=== PATIENT | female | born 1965 | race Caucasian/White ===

== ENCOUNTER 2023-12-27 08:29 | Inpatient (IN) | payer OTHER, SELFPAY ==
[2023-12-27] VITALS (10 sets, daily range): BP systolic 90–150; BP diastolic 57–93; PULSE 60–83; RESP 14–18; TEMP 36.3–36.6; O2SAT 92–100; BMI 28.1
--- NOTE | ~2023-12-27 | CT_ITS ---
EXAMINATION: CT HEAD WITHOUT CONTRAST CLINICAL INFORMATION: Hypernatremia COMPARISON: None available. TECHNIQUE: Contiguous axial imaging was performed from the skull base to vertex without intravenous administration of contrast. This CT examination was performed using dose optimization techniques as appropriate, variously including the following: *Automated exposure control *Adjustment of mA and/or kV according to patient size (this includes techniques or standardized protocols for targeted exams where dose is matched to indication/reason for exam; i.e. extremities or head) *Use of iterative reconstruction technique DLP: 851.4 mGy-cm FINDINGS: There is no evidence of acute intracranial hemorrhage or edematous territorial infarction. Monroy-white matter differentiation is preserved. There is no abnormal attenuation within the brain parenchyma. The ventricles are normal in morphology and size. No evidence for obstructive hydrocephalus. No abnormal mass effect or midline shift. No extra-axial fluid collections. No acute soft tissue or osseous abnormalities. The mastoid air cells and visualized paranasal sinuses are clear. CT/CT head/brain wo IV con IMPRESSION: 1. No abnormal findings
--- NOTE | ~2023-12-27 | CT_ITS ---
EXAMINATION: CT CHEST WITHOUT CONTRAST CLINICAL INFORMATION: 58-year-old female with hyponatremia, rule out mass COMPARISON: None available. TECHNIQUE: Multidetector volumetric CT imaging of the chest was done. Axial MIP volume rendering provided. Sagittal and coronal reformatted images were obtained. This CT examination was performed using dose optimization techniques as appropriate, variously including the following: *Automated exposure control *Adjustment of mA and/or kV according to patient size (this includes techniques or standardized protocols for targeted exams where dose is matched to indication/reason for exam; i.e. extremities or head) *Use of iterative reconstruction technique DLP: 144.9 mGy-cm FINDINGS: CASHIER CREDIT: Unremarkable LUNGS: The lungs are clear with no evidence of inflammation or nodules. MEDIASTINUM: The mediastinum is normal. CORONARY ARTERY CALCIFICATION: Mild PLEURA: There is no pleural effusion. No pleural mass or thickening. AXILLA: No lymphadenopathy. UPPER ABDOMEN: Unremarkable. OSSEOUS STRUCTURES: There are degenerative changes with extensive subchondral sclerosis T6-T7, T7-T8 and C7-T1. There is mild dextroscoliosis of thoracic spine CT/CT chest wo IV con IMPRESSION: 1. No lung nodules or masses. 2. Mild coronary artery calcification. 3. Degenerative changes in the thoracic spine. Fleischner guidelines were followed.
--- NOTE | 2023-12-27 08:30 | ECG_ITS ---
Test Reason : near syncope Blood Pressure : / mmHG Vent. Rate : 060 BPM Atrial Rate : 060 BPM P-R Int : 244 ms QRS Dur : 106 ms QT Int : 466 ms P-R-T Axes : 014 -28 002 degrees QTc Int : 466 ms Sinus rhythm with 1st degree A-V block Possible Left atrial enlargement Incomplete right bundle branch block Nonspecific T wave abnormality Prolonged QT Abnormal ECG No previous ECGs available Referred By: Generic ED Physician Electronically Signed By:SOHAM GASCA MD
--- NOTE | 2023-12-27 09:16 | ED.SYNCOPE ---
HPI - Syncope General Chief Complaint: Weakness Stated Complaint: weakness and low bp 55/40 per EMS Time Seen by Provider: 12/27/23 08:53 Source: patient, EMS and old records reviewed Mode of arrival: EMS Limitations: no limitations History of Present Illness ED Provider: DEVONTE ORANTES narrative: 58 yo female with PMH of HTN compliant with medications showed up at work today and the office was very hot as the air conditioner was office. She has passed out due to heat in the past. She denies CP/SOB. No GIB symptoms. The patient notes she felt very dizzy, sweaty, nauseated and felt like she was going to pass out - she did x 2 sitting at her desk - witnessed by co workers no trauma. 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) -: minutes(s) Prodromal symptoms: lightheaded, diaphoresis and nausea/vomiting Witnessed: Yes - by Bystander Context: at rest Injuries sustained associated with event: none Current symptoms: weakness History: previous syncopal episode Treatments prior to arrival: IV fluids Related Data Allergies Allergy/AdvReac Type Severity Reaction Status Date / Time Penicillins Allergy Unknown Unknown Verified 12/27/23 08:41 Review of Systems Review of Systems: Constitutional : No Fever, No Chills, No Fatigue ENT/Mouth : No sore throat, No Rhinorrhea Eyes: No Eye Pain, No Swelling, No Redness Cardiovascular : No Chest Pain, No SOB, No Dyspnea on Exertion Respiratory : No Cough, No Sputum Gastrointestinal : No Nausea, No Vomiting, No Diarrhea, No abdominal Pain Genitourinary : No Dysuria, No Urinary Frequency, No Hematuria, Musculoskeletal : No joint pain, No Myalgias, No Joint Swelling Skin : No Skin Lesions, No rash Neuro :pos Weakness, No Numbness, No Dizziness, no Headache, pos syncope Psych : No Anxiety/Panic, No Depression All other systems reviewed and are negative COUNTS INCLUDE 234 BEDS AT THE [facility] Past Medical History Attestation statement: The following information was validated with the patient. Source: old records reviewed Medical History HTN (hypertension) Social History Social History (Updated 12/27/23 @ 09:49 by Any Hampton DO) Alcohol intake: current Alcohol intake frequency: 0-2 drinks per day Alcohol type: hard liquor Smoked in Last 30 Days: No Use of substances other than those prescribed or required for medical reasons: Yes Substance Use Type: Marijuana Substance Use Frequency: Occasionally Advance Directives: No Advance Directives Information Provided: Yes Physical Exam Vital Signs: Vital Signs: Last Vital Signs Temp 97.6 F 12/27/23 08:36 Pulse 71 12/27/23 10:19 Resp 14 12/27/23 10:19 BP 123/88 12/27/23 10:19 Pulse Ox 100 12/27/23 10:19 O2 Del Method Room Air 12/27/23 10:19 BMI result Body Mass Index 28.1 Appearance: Alert. Oriented X3. No acute distress. Eyes: Pupils equal, round and reactive to light. ENT: Pharynx normal. Neck: Normal inspection. Neck supple. CVS: Normal heart rate and rhythm. Pulses normal. Respiratory: No respiratory distress. Breath sounds normal. Abdomen: Soft and nontender. Skin: Skin warm and dry. Normal skin color. Normal skin turgor. Extremities: No lower extremity edema. No calf ttp Neuro: Oriented X 3. No motor deficit. No sensory deficit. tremors or tongue fasciculations Course Course Course Narrative: magnesium low getting repleted as soon as Na back held fluids - total of 400NS bolus will contact renal - 300 was prehospital Medications Administered Generic Name Dose Route Start Last Admin Trade Name Freq PRN Reason Stop Dose Admin Magnesium Sulfate 2 gm in 50 mls @ 25 mls/hr 12/27/23 10:36 12/27/23 10:47 Magnesium Sulfate/H2o IV 12/27/23 12:35 25 mls/hr ONCE ONE Administration Discontinued Medications Generic Name Dose Route Start Last Admin Trade Name Freq PRN Reason Stop Dose Admin Sodium Chloride 1,000 mls @ 999 mls/hr 12/27/23 09:05 12/27/23 10:48 Ns IV 12/27/23 10:05 Infused .Q1H1M ONE Infusion Sodium Chloride 1,000 mls @ 999 mls/hr 12/27/23 09:05 12/27/23 10:49 Ns IV 12/27/23 10:05 Not Given .Q1H1M ONE Medical Decision Making Medical Decision Making MDM Narrative: 58 yo female with HTN here with after 2 syncopal episodes no prior CP/SOB no recent GIB likely triggered by heat in hot office at this time IVF, trop x 1, lytes, orthostatic VS. No CP/SOB to suggest VTE and she denies recent travel or procedures. No hx of ETOH withdrawal denies abuse. Does not appear dry or volume overloaded on exam. Differential Diagnosis Differential Diagnoses: The differential diagnosis associated with the presentation includes syncope, orthostatics, vasovagal, dehydration, anemia Admission/Observation Consideration of admission/observation: Escalation of care including admission/observation considered admit given lyte abnormality Consult Healthcare Provider Management of the patient was discussed with: Hospitalist (will admit) and Income Tax Preparer (Dr. Taylor) Dr. Taylor - admit, NaCl 1 GM BID order urine Na, serum and urine osm, SPEP and lipid profile hold HCTZ he will see Lab Data MDM Lab Attestation statement: I reviewed the patient's lab results. 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 12/27/23 09:15 12/27/23 10:05 Labs: Lab Results 12/27/23 12/27/23 12/27/23 Range/Units 08:42 09:15 10:05 WBC 3.1 L (4.8-10.8) X10*3/uL RBC 3.43 L (4.20-5.50) X10*6/uL Hgb 11.9 L (12.0-16.0) g/dl Hct 31.7 L (37.0-47.0) % MCV 92.4 (80.0-98.0) fL MCH 34.7 H (27.0-33.0) pg MCHC 37.5 H (31.0-35.0) g/dl RDW 11.0 (11.0-16.0) % Plt Count 232 (160-400) X10*3/uL MPV 9.0 L (9.4-12.3) fL Immature Gran % (Auto) 0.3 (0.0-0.4) % Neut % (Auto) 80.8 H (45-73) % Lymph % (Auto) 10.0 L (20-40) % [place] % (Auto) 7.7 (2-11) % Eos % (Auto) 0.6 (0-4) % Baso % (Auto) 0.6 (0-2) % Lymph # (Auto) 0.3 L (1.2-4.9) X10*3/uL [place] # (Auto) 0.2 (0.1-1.2) X10*3/uL Eos # (Auto) 0.0 (0.0-0.4) X10*3/uL Baso # (Auto) 0.0 (0.0-0.2) X10*3/uL Abs Immat Gran (auto) 0.01 (0.00-0.03) X10*3/uL Absolute Neuts (auto) 2.5 (2.0-8.3) x10*3/uL Absolute Nucleated RBC 0.000 (0.0-0.012) X10*3/uL Nucleated RBC % (auto) 0.0 (0.0-0.2) /100WBC Sodium 124 L (135-145) mmol/L Potassium 3.5 (3.3-5.1) mmol/L Chloride 88 L (96-108) mmol/L Carbon Dioxide 21 L (22-29) mmol/L Anion Gap 19 (12-20) BUN 11 (9-16) mg/dL Creatinine 0.81 (0.5-1.4) mg/dL Estim Creat Clear Calc 75.6 Estimated GFR > 60 POC Glucose 88 (60-115) mg/dL Random Glucose 77 (60-115) mg/dL Calcium 9.1 (8.4-10.2) mg/dL Magnesium 1.2 L* (1.6-2.6) mg/dL Total Bilirubin 1.1 H (0.0-1.0) mg/dL AST 57 H (5-31) U/L ALT 27 (0-31) U/L Alkaline Phosphatase 70 (39-117) U/L Troponin I High Sens < 2.7 (<3.5-17.0) ng/L Total Protein 8.0 (6.5-8.0) g/dL Albumin 4.6 (3.5-5.0) g/dL Independent Interpretation I performed an independent interpretation of an: EKG Interpretation: Rate: 60 Rhythm: NSR with 1st degree AVB [place]: left Normal P waves. Normal [place]. incomplete RBBB ST T wave : nonspecific ST T wave changes V3-V5, no SILVIA qTC: 466 prior studies: no prior The study has been interpreted contemporaneously by me. . Independent Historian Clinical information obtained from an independent historian. History obtained from or confirmed by: EMS Critical Care Time Critical Care Time Critical Care Time: Yes Total Critical Care Time: 45 Attestation: consult, IV magnesium, admission I attest to this time spent taking care of the patient Discharge Plan Discharge Clinical Impression: Hypomagnesemia, Acute hyponatremia Syncope Qualifiers: Syncope type: unspecified Qualified Code(s): R55 - Syncope and collapse Patient Disposition: Admitted As Inpatient Print Language: Vietnamese
[2023-12-27 09:22] LABS: MANUAL DIFF FLAG NO
[2023-12-27 09:28] LABS: Basophils Percent Auto 0.6 % (0-2); Eosinophils Percent Auto 0.6 % (0-4); Hematocrit 31.7 % (37.0-47.0); Hemoglobin 11.9 g/dl (12.0-16.0); Imm Gran Abs Auto 0.01 X10*3/uL (0.00-0.03); Imm Gran Pct Auto 0.3 % (0.0-0.4); Lymphocytes Absolute Auto 0.3 X10*3/uL (1.2-4.9); Mean Corpuscular HGB Conc 37.5 g/dl (31.0-35.0); Mean Corpuscular Hemoglobin 34.7 pg (27.0-33.0); Mean Corpuscular Volume 92.4 fL (80.0-98.0); Monocytes Absolute Auto 0.2 X10*3/uL (0.1-1.2); Monocytes Percent Auto 7.7 % (2-11); Neutrophils Absolute Auto 2.5 x10*3/uL (2.0-8.3); Neutrophils Percent Auto 80.8 % (45-73); Platelet Count 232 X10*3/uL (160-400); Red Blood Count 3.43 X10*6/uL (4.20-5.50); White Blood Count 3.1 X10*3/uL (4.8-10.8)
[2023-12-27 09:33] LABS: Glucose, Whole Blood 88 mg/dL (60-115)
[2023-12-27] MEDS: 0.9 % Sodium Chloride 1,000 ML 999 ML IV (09:42)
[2023-12-27 09:47] LABS: Troponin-I High Sensitivity < 2.7 ng/L (<3.5-17.0)
[2023-12-27 10:35] LABS: Alanine Aminotransferase 27 U/L (0-31); Albumin Level 4.6 g/dL (3.5-5.0); Alkaline Phosphatase 70 U/L (39-117); Anion Gap 19 (12-20); Aspartate Amino Transferase 57 U/L (5-31); Bilirubin Total 1.1 mg/dL (0.0-1.0); Blood Urea Nitrogen 11 mg/dL (9-16); Calcium 9.1 mg/dL (8.4-10.2); Carbon Dioxide 21 mmol/L (22-29); Chloride 88 mmol/L (96-108); Creatinine Clr Calc Pharmacy 75.6; Estimated Glomerular Filt Rate > 60; Glucose Random 77 mg/dL (60-115); Magnesium 1.2 mg/dL (1.6-2.6); Potassium 3.5 mmol/L (3.3-5.1); Sodium 124 mmol/L (135-145)
[2023-12-27] MEDS: Magnesium Sulfate/H2O 2 GM/50 ML PIGGYBACK IV (10:47)
[2023-12-27 10:53] LABS: Influenza A PCR NEGATIVE (Negative); Influenza B PCR NEGATIVE (Negative); Resp Syncy Virus RNA Qual PCR NEGATIVE (Negative); SARS COV2 PCR INHOUSE NEGATIVE (Negative)
--- NOTE | 2023-12-27 11:14 | P.HPHOSP_ITS ---
History of Present Illness Date of Service: 12/27/23 Attending physician on admission: Mandi Jerez Chief Complaint: Lightheadedness, weakness, syncope Pt is a 58-year-old female with a PMH significant for?HTN who presents to the ED for evaluation of lightheadedness, dizziness, and syncopal episodes x2 while at work. 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 Reports she was in her normal state of health last night and this morning. But while sitting at her desk pt experienced sudden onset diaphoresis, lightheaded, and dizzy. Coworkers witnessed to brief episodes of syncope while sitting at desk. No fall or trauma or head strike. Patient denies any recent illness. No nausea or vomiting or diarrhea. Currently does not feel lightheaded or dizzy, but overall weak with a slight headache. No chest pain/pressure, palpitations. No abdominal pain. Denies shortness of breath or difficulty breathing. Denies any significant cardiac history, though notes father had both a stroke and an NV, and brother has CAD with a triple bypass. 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 Did not seek medical treatment for that episode. Reports consuming a Folic beverages after work daily. Occasionally smokes marijuana but denies nicotine use. No other illicit substance use. Patient states has been chronically hyponatremic for some time, but unclear what her levels are or for how long they have been low. 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 Reports has been on hydrochlorothiazide for approximately 1 year. In the ED pt was patient's vitals were stable and WNL, though EMS noted BP of 55/40 at 1st examination which improved after 300 mL of NS. Labs were significant for slight leukopenia of 3.1, H&H 11.9/31.7, sodium 124, chloride 88, magnesium 1.2, bilirubin 1.1, and AST 57. Renal function WNL. Troponins negative. Tested negative for flu, RSV, and COVID. EKG demonstrated sinus rhythm with first-degree AV block and nonspecific diffuse T-wave abnormality without evidence of significant ST elevations or depressions. Pt was treated with 1 L IVF, Mag sulfate, and sodium chloride 1g p.o. Pt will be admitted to the hospital for treatment and further evaluation of syncopal episode in the setting of hyponatremia and hypomagnesemia. Review of Systems 2 Review of Systems: Lightheadedness, dizziness Syncope x2 Diaphoresis Generalized weakness Mild headache No chest pain/pressure, palpitations Denies fever, chills, nausea, vomiting, diarrhea No abdominal pain PMFSH Medical History HTN (hypertension) Social History Household Members: Family Housing: House Do you presently have visiting nurse or other home services: No Alcohol intake: current Alcohol intake frequency: 0-2 drinks per day Alcohol type: hard liquor Comment: Pt refusing all alarms Patient Tobacco Use Status: Never used Tobacco Smoked in Last 30 Days: No Use of substances other than those prescribed or required for medical reasons: Yes Substance Use Type: Marijuana Substance Use Frequency: Occasionally Currently Displaying Signs/Symptoms of Drug Intoxication Withdrawal: No Any prior treatment program specific to substance use: No Have you been hit, kicked, punched, or otherwise hurt by someone within the past year? If so, by whom?: No Do you feel safe in your current relationship?: Yes Is there a partner from a previous relationship who is making you feel unsafe now?: No Are you made to feel afraid or neglected: No Advance Directives: No Advance Directives Information Provided: Yes Do you have a plan to hurt others: No Plan Recently lost weight without trying: No Eating poorly because of decreased appetite: No Patient : No : No Poor oral hygiene: No service: No Meds Allergies Allergy/AdvReac Type Severity Reaction Status Date / Time Penicillins Allergy Unknown Unknown Verified 12/27/23 08:41 Active Medications: Current Medications Magnesium Sulfate (Magnesium Sulfate/H2o) 2 gm in 50 mls @ 25 mls/hr IV ONCE ONE Stop: 12/27/23 12:35 Last Admin: 12/27/23 10:47 Dose: 25 mls/hr Home Medications ?Medication ?Instructions ?Recorded ?Confirmed ?Last Taken ?Type hydrochlorothiazide 25 mg tablet 25 mg PO DAILY 12/27/23 12/27/23 12/27/23 History ibuprofen 600 mg tablet 600 mg PO Q6H PRN Pain 12/27/23 12/27/23 Unknown History lisinopril 40 mg tablet 40 mg PO DAILY 12/27/23 12/27/23 12/27/23 History metoprolol succinate 100 mg 100 mg PO DAILY 12/27/23 12/27/23 12/27/23 History tablet,extended release 24 hr omeprazole 20 mg capsule,delayed 20 mg PO DAILY 12/27/23 12/27/23 12/27/23 History release Physical Exam 2 Vital Signs and Narrative: Vital Signs: Last Vital Signs Temp 97.6 F 12/27/23 08:36 Pulse 71 12/27/23 10:19 Resp 14 12/27/23 10:19 BP 123/88 12/27/23 10:19 Pulse Ox 100 12/27/23 10:19 O2 Del Method Room Air 12/27/23 10:19 BMI result Body Mass Index 28.1 Constitutional: Alert, in no acute distress. Mental Status: Oriented to person, place and time. Eyes: Pupils are equal, round, and reactive to light. Ear, Nose, and Throat: Oropharynx clear, mucous membranes moist. Ears and nose without deformities. Trachea midline. Respiratory: Clear to auscultation bilaterally. No wheezing, rales, or rhonchi. Cardiovascular: S1, S2 regular. No murmurs, rubs, or gallops. Gastrointestinal: Abdomen soft, non-tender, non-distended. Normal bowel sounds. Neurologic: Cranial nerves II-XII are grossly intact bilaterally. No focal neurological deficits. Moves all extremities spontaneously. Skin: Warm, dry. Extremities: No edema. Psychiatric: Normal mood and affect. Results Labs 12/28/23 06:11 12/28/23 06:11 Labs: Laboratory Results - last 24 hr 12/27/23 12/27/23 12/27/23 08:42 09:15 10:05 MCV 92.4 MCH 34.7 H MCHC 37.5 H RDW 11.0 Plt Count 232 MPV 9.0 L Immature Gran % (Auto) 0.3 Neut % (Auto) 80.8 H Lymph % (Auto) 10.0 L [place] % (Auto) 7.7 Eos % (Auto) 0.6 Baso % (Auto) 0.6 Lymph # (Auto) 0.3 L [place] # (Auto) 0.2 Eos # (Auto) 0.0 Baso # (Auto) 0.0 Abs Immat Gran (auto) 0.01 Absolute Neuts (auto) 2.5 Absolute Nucleated RBC 0.000 Nucleated RBC % (auto) 0.0 Anion Gap 19 Estim Creat Clear Calc 75.6 Estimated GFR > 60 POC Glucose 88 Random Glucose 77 Calcium 9.1 Magnesium 1.2 L* Total Bilirubin 1.1 H AST 57 H ALT 27 Alkaline Phosphatase 70 Troponin I High Sens < 2.7 Total Protein 8.0 Albumin 4.6 Influenza Type A (PCR) NEGATIVE Influenza Type B (PCR) NEGATIVE RSV RNA Qual (PCR) NEGATIVE SARS-CoV-2 RNA (RT-PCR) NEGATIVE Assessment and Plan (1) Acute hyponatremia: Status: Acute (2) Hypomagnesemia: Status: Acute (3) Syncope: Qualifiers: Syncope type: unspecified Qualified Code(s): R55 - Syncope and collapse Status: Acute Plan Pt is a 58-year-old female with a PMH significant for?HTN who presents to the ED for evaluation of lightheadedness, dizziness, and syncopal episodes x2 while at work. Pt will be admitted to the hospital for treatment and further evaluation of syncopal episode in the setting of hyponatremia and hypomagnesemia. Syncopal episode Pt with lightheadedness, dizziness, and diaphresis, syncope while sitting at desk x2 Likely secondary to electrolyte abnormalities, treat as below Orthostatics negative Patient with no significant cardiac history, no chest pain/pressure or palpitations Monitor on telemetry Hyponatremia Sodium 124 at time presentation Pt states chronically hyponatremic for some time Started on hydrochlorothiazide for at least the past year Will check urine sodium, serum and urine osmolality, SPEP, and lipid profile Hold hydrochlorothiazide Fluid restriction for now Patient received sodium chloride 1 g in the ED Will check recheck sodium and consider additional sodium chloride tablets as necessary Follow BNP Hypomagnesemia Magnesium 1.2 at time of presentation Patient received Mag 2 g IV in ED Follow Mag, supplement as necessary HTN EMS report patient hypotensive at 55/40 upon arrival, received 300 mL of NS Patient has been normotensive to hypertensive in the ED Will hold hydrochlorothiazide Continue lisinopril and metoprolol tomorrow if BP allows GERD Continue omeprazole Alcohol use Patient reports drinking a couple of drinks after work each day Will monitor on CIWA Full Code Attending:?Dr. Jerez DVT Prophylaxis: Lovenox Pt will require a hospitalization of at least two nights for treatment of syncope in the setting of electrolyte abnormalities. Given patient's hyponatremia, will require hospitalization for careful sodium correction with close monitoring of labs and cardiac function. Pt will also need specialist consultation with Nephrology. Quality Stroke Does the patient have a stroke diagnosis?: No VTE Prior VTE?: No VTE Risk Level:: Medical - moderate - high VTE Device Contraindication: Treatment Not Indicated VTE Drug Contraindication: N/A - Med Ordered
--- NOTE | 2023-12-27 11:14 | PHA.MEDREC ---
Pharmacy Consult ? Medication Reconciliation Pharmacy has completed the medication reconciliation.
[2023-12-27] MEDS: Sodium Chloride Tab 1 GM TABLET PO (11:59)
[2023-12-27 13:11] LABS: Osmolality, Serum 255 mosm/kg (281-305)
[2023-12-27 13:12] LABS: Cholesterol 227 mg/dL (<200); HDL Cholesterol 92 mg/dL (>40); LDL Cholesterol Calculated 123 mg/dL (<100); Triglycerides 63 mg/dL (<150)
[2023-12-27 14:24] LABS: Anion Gap 18 (12-20); Blood Urea Nitrogen 11 mg/dL (9-16); Calcium 9.4 mg/dL (8.4-10.2); Carbon Dioxide 24 mmol/L (22-29); Chloride 86 mmol/L (96-108); Creatinine Clr Calc Pharmacy 75.6; Estimated Glomerular Filt Rate > 60; Glucose Random 100 mg/dL (60-115); Sodium 124 mmol/L (135-145)
[2023-12-27] MEDS: 0.9 % Sodium Chloride Flush 3 ML SYRINGE IVFLUSH (16:16)
[2023-12-27 18:04] LABS: Osmolality Urine 478 mosm/kg (373-1093)
--- NOTE | 2023-12-27 20:02 | PM.CNNEP ---
History of Present Illness Reason for Consult Consult date: 12/27/23 Reason for consult: Hyponatremia Chief Complaint Chief complaint: weakness and low bp 55/40 per EMS History of Present Illness Narrative: 58-year-old female with ?HTN who presents to the ED for evaluation of lightheadedness, dizziness, and syncopal episodes x2 while at work. 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 Reports she was in her normal state of health last night and this morning. But while sitting at her desk pt experienced sudden onset diaphoresis, lightheaded, and dizzy. Coworkers witnessed to brief episodes of syncope while sitting at desk. No fall or trauma or head strike. Patient denies any recent illness. No nausea or vomiting or diarrhea. Currently does not feel lightheaded or dizzy, but overall weak with a slight headache. No chest pain/pressure, palpitations. No abdominal pain. Denies shortness of breath or difficulty breathing. Denies any significant cardiac history, though notes father had both a stroke and an [place], and brother has CAD with a triple bypass. 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 Did not seek medical treatment for that episode. Reports consuming four alcoholc beverages after work daily. Occasionally smokes marijuana but denies nicotine use. No other illicit substance use. Patient states has been chronically hyponatremic for some time, but unclear what her levels are or for how long they have been low. Reports has been on hydrochlorothiazide for approximately 1 year. She had been on wellbutryin which has been discontinued by the patient. In the ED pt was patient's vitals were stable and WNL, though EMS noted BP of 55/40 at 1st examination which improved after 300 mL of NS. Labs were significant for slight leukopenia of 3.1, H&H 11.9/31.7, sodium 124, chloride 88, magnesium 1.2, bilirubin 1.1, and AST 57. Renal function WNL. Troponins negative. Tested negative for flu, RSV, and COVID. EKG demonstrated sinus rhythm with first-degree AV block and nonspecific diffuse T-wave abnormality without evidence of significant ST elevations or depressions. Pt was treated with 1 L IVF, Mag sulfate, and sodium chloride 1g p.o. Pt was admitted to the hospital for treatment and further evaluation of syncopal episode in the setting of hyponatremia and hypomagnesemia. Nephrology has been consulted to assist in her clinical care during her current hospital stay Review of Systems Review of Systems Yes all other systems are reviewed and are negative PMFSH Past Medical History Medical History HTN (hypertension) Social History Social History Household Members: Family Housing: House Do you presently have visiting nurse or other home services: No Alcohol intake: current Alcohol intake frequency: 0-2 drinks per day Alcohol type: hard liquor Patient Tobacco Use Status: Never used Tobacco Smoked in Last 30 Days: No Use of substances other than those prescribed or required for medical reasons: Yes Substance Use Type: Marijuana Substance Use Frequency: Occasionally Currently Displaying Signs/Symptoms of Drug Intoxication Withdrawal: No Any prior treatment program specific to substance use: No Have you been hit, kicked, punched, or otherwise hurt by someone within the past year? If so, by whom?: No Do you feel safe in your current relationship?: Yes Is there a partner from a previous relationship who is making you feel unsafe now?: No Are you made to feel afraid or neglected: No Advance Directives: No Advance Directives Information Provided: Yes Do you have a plan to hurt others: No Plan Recently lost weight without trying: No Eating poorly because of decreased appetite: No Patient : No : No Poor oral hygiene: No Meds Allergies Allergy/AdvReac Type Severity Reaction Status Date / Time Penicillins Allergy Unknown Unknown Verified 12/27/23 08:41 Active Medications: Current Medications Acetaminophen (Acetaminophen 325 Mg Tablet) 650 mg PO Q6H PRN PRN Reason: Pain, Mild (Pain Scale 1-3), fever or headache Benzonatate (Benzonatate 100 Mg Capsule) 100 mg PO TID PRN PRN Reason: Cough Calcium Carbonate (Calcium Carbonate 750 Mg Tab.Chew) 750 mg PO Q4H PRN PRN Reason: Heartburn Enoxaparin Sodium (Enoxaparin Sodium 40 Mg/0.4 Ml Syringe) 40 mg SUBCUT Q24H [facility] Last Admin: 12/27/23 13:39 Dose: Not Given Lisinopril (Lisinopril 40 Mg Tablet) 40 mg PO DAILY [facility]; Protocol Magnesium Hydroxide (Milk Of Magnesia 30 Ml Oral.Susp) 30 ml PO DAILY PRN PRN Reason: Constipation Melatonin (Melatonin 3 Mg Tablet) 6 mg PO BEDTIME PRN PRN Reason: Insomnia Metoprolol Succinate (Metoprolol Succinate Er 100 Mg Tab.Er.24h) 100 mg PO DAILY [facility]; Protocol Omeprazole (Omeprazole 20 Mg Capsule.Dr) 20 mg PO DAILY [facility] Ondansetron HCl (Ondansetron Hcl 4 Mg/2 Ml Vial) 4 mg IVPUSH Q8H PRN PRN Reason: Nausea and Vomiting Sodium Chloride (0.9 % Sodium Chloride Flush 3 Ml Syringe) 3 ml IVFLUSH QSHIFT [facility] Last Admin: 12/27/23 16:16 Dose: 3 ml Home Medications ?Medication ?Instructions ?Recorded ?Confirmed ?Last Taken ?Type hydrochlorothiazide 25 mg tablet 25 mg PO DAILY 12/27/23 12/27/23 12/27/23 History ibuprofen 600 mg tablet 600 mg PO Q6H PRN Pain 12/27/23 12/27/23 Unknown History lisinopril 40 mg tablet 40 mg PO DAILY 12/27/23 12/27/23 12/27/23 History metoprolol succinate 100 mg 100 mg PO DAILY 12/27/23 12/27/23 12/27/23 History tablet,extended release 24 hr omeprazole 20 mg capsule,delayed 20 mg PO DAILY 12/27/23 12/27/23 12/27/23 History release Physical Exam Vital Signs: Last Vital Signs Temp 97.3 F 12/27/23 19:47 Pulse 74 12/27/23 19:47 Resp 18 12/27/23 19:47 BP 142/90 H 12/27/23 19:47 Pulse Ox 98 12/27/23 19:47 O2 Del Method Room Air 12/27/23 19:47 BMI result Body Mass Index 28.1 Const General: no acute distress Orientation/consciousness: patient oriented x3 Eyes EOM: EOMs intact bilaterally Neck Neck: Yes supple Resp Auscultation: diminished lung sounds Cardio Rate: regular rate GI Palpation (GI): Soft to palpation Neuro Other: Tremor + General: patient oriented x3 and moves all extremities Results Lab Results 12/27/23 09:15 12/27/23 14:01 Lab results: Chemistry 12/27/23 12/27/23 10:05 14:01 Sodium 124 L 124 L Potassium 3.5 4.0 Carbon Dioxide 21 L 24 BUN 11 11 Creatinine 0.81 0.81 Calcium 9.1 9.4 Hematology 12/27/23 09:15 WBC 3.1 L Hgb 11.9 L Plt Count 232 Urine Studies 12/27/23 17:14 Urine Osmolality 478 Assessment and Plan (1) Acute hyponatremia: Status: Acute (2) Hypomagnesemia: Status: Acute Plan Euvolemic Hyponatremia Has excess ADH Cortisol/Uric acid ordered Needs F/U CXR/CT head if not done Started on PO NaCl Likely will need PO Urea 30 Gm bid Hypomag due to Mg wasting due to alcohol use Needs fluid restriction; Avoid rapid Na correction Labs AM; Shall F/U closely Procedures Date of Service Date of Service: 12/27/23
[2023-12-27 20:53] LABS: Anion Gap 19 (12-20); Blood Urea Nitrogen 13 mg/dL (9-16); Calcium 9.9 mg/dL (8.4-10.2); Carbon Dioxide 22 mmol/L (22-29); Chloride 86 mmol/L (96-108); Creatinine Clr Calc Pharmacy 78.5; Estimated Glomerular Filt Rate > 60; Glucose Random 100 mg/dL (60-115); Magnesium 1.6 mg/dL (1.6-2.6); Potassium 3.7 mmol/L (3.3-5.1); Sodium 123 mmol/L (135-145)
[2023-12-28] MEDS: 0.9 % Sodium Chloride Flush 3 ML SYRINGE IVFLUSH ×4 (00:10→21:12)
[2023-12-28 04:00] VITALS: BP 157/85; PULSE 71; RESP 18; TEMP 36.9; O2SAT 98
[2023-12-28 06:57] LABS: Hematocrit 31.5 % (37.0-47.0); Hemoglobin 11.6 g/dl (12.0-16.0); Mean Corpuscular HGB Conc 36.8 g/dl (31.0-35.0); Mean Corpuscular Hemoglobin 34.2 pg (27.0-33.0); Mean Corpuscular Volume 92.9 fL (80.0-98.0); Mean Platelet Volume 9.4 fL (9.4-12.3); Platelet Count 216 X10*3/uL (160-400); Red Blood Count 3.39 X10*6/uL (4.20-5.50); Red Cell Distribution Width 10.8 % (11.0-16.0); White Blood Count 2.6 X10*3/uL (4.8-10.8)
[2023-12-28 07:19] VITALS: BP 147/91; PULSE 64; RESP 18; TEMP 36.8; O2SAT 98
[2023-12-28 07:25] LABS: Anion Gap 16 (12-20); Blood Urea Nitrogen 11 mg/dL (9-16); Calcium 10.3 mg/dL (8.4-10.2); Carbon Dioxide 26 mmol/L (22-29); Chloride 86 mmol/L (96-108); Creatinine Clr Calc Pharmacy 76.5; Estimated Glomerular Filt Rate > 60; Glucose Random 92 mg/dL (60-115); Magnesium 1.5 mg/dL (1.6-2.6); Sodium 124 mmol/L (135-145); Uric Acid 4.9 mg/dL (2.4-5.7)
[2023-12-28 07:30] LABS: Cortisol Random 20.6 ug/dL
[2023-12-28 07:31] LABS: Thyroid Stimulating Hormone 1.33 uIU/mL (0.32-4.0)
[2023-12-28] MEDS: lisinopriL 40 MG TABLET PO (07:42)
[2023-12-28] MEDS: Metoprolol Succinate ER 100 MG TAB.ER.24H PO (07:42)
[2023-12-28] MEDS: Sodium Chloride Tab 1 GM TABLET PO (07:42)
[2023-12-28] MEDS: Omeprazole 20 MG CAPSULE.DR PO (07:42)
[2023-12-28] MEDS: Urea 15 GM POWDER 30 GM PO ×2 (07:42→20:58)
[2023-12-28] MEDS: Magnesium Oxide 400 MG TABLET PO ×2 (07:42→17:19)
[2023-12-28] MEDS: Magnesium Sulfate/H2O 2 GM/50 ML PIGGYBACK IV (07:43)
--- NOTE | 2023-12-28 08:17 | MHC.CM.PN ---
CM met with Patient at bedside. 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 Patient lives with her her S.O./HCP/Ray and she is functionally independent. Home/self care is the goal and CM has initiated and will follow for dc planning. PCP is Dr. Seun Cotton.
[2023-12-28 11:20] VITALS: BP 145/91; PULSE 68; RESP 18; TEMP 36.6; O2SAT 98
[2023-12-28] MEDS: Enoxaparin Sodium 40 MG/0.4 ML SYRINGE SUBCUT (11:58)
[2023-12-28 12:29] LABS: Anion Gap 17 (12-20); Blood Urea Nitrogen 43 mg/dL (9-16); Calcium 10.8 mg/dL (8.4-10.2); Carbon Dioxide 26 mmol/L (22-29); Chloride 85 mmol/L (96-108); Creatinine Clr Calc Pharmacy 69.5; Estimated Glomerular Filt Rate > 60; Glucose Random 105 mg/dL (60-115); Potassium 4.1 mmol/L (3.3-5.1); Sodium 124 mmol/L (135-145)
--- NOTE | 2023-12-28 13:44 | HO.PM.IMPN ---
Subjective Subjective Date of Service: 12/28/23 Interval History: seen and evaluated this morning feels better overall Na remains low at 124 No syncope reports or LOC BP normal-high Review of Systems Review of Systems: Yes all other systems are reviewed and are negative Physical Exam Vital Signs: Vital Signs: Last Vital Signs Temp 97.9 F 12/28/23 11:20 Pulse 68 12/28/23 11:20 Resp 18 12/28/23 11:20 BP 145/91 H 12/28/23 11:20 Pulse Ox 98 12/28/23 11:20 O2 Del Method Room Air 12/28/23 11:20 BMI result Body Mass Index 28.1 Const: Other: Constitutional : Awake, interactive, not in distress Neck : Normal inspection, Supple Cardiovascular : RRR, no JVP, no lower extremity edema Respiratory : good bilateral air entry, no crackles, wheezes or rhonchi Gastrointestinal: soft, lax, Normal bowel sounds, Non tender Skin : Warm, Dry Neurological : Alert & oriented x3, No focal deficit Objective Data Active Medications Acetaminophen (Acetaminophen 325 Mg Tablet) 650 mg PO Q6H PRN PRN Reason: Pain, Mild (Pain Scale 1-3), fever or headache Benzonatate (Benzonatate 100 Mg Capsule) 100 mg PO TID PRN PRN Reason: Cough Calcium Carbonate (Calcium Carbonate 750 Mg Tab.Chew) 750 mg PO Q4H PRN PRN Reason: Heartburn Enoxaparin Sodium (Enoxaparin Sodium 40 Mg/0.4 Ml Syringe) 40 mg SUBCUT Q24H [facility] Last Admin: 12/28/23 11:58 Dose: 40 mg Documented By: ESTHER Lisinopril (Lisinopril 40 Mg Tablet) 40 mg PO DAILY [facility]; Protocol Last Admin: 12/28/23 07:42 Dose: 40 mg Documented By: ESTHER Magnesium Hydroxide (Milk Of Magnesia 30 Ml Oral.Susp) 30 ml PO DAILY PRN PRN Reason: Constipation Magnesium Oxide (Magnesium Oxide 400 Mg Tablet) 400 mg PO BIDPC [facility] Last Admin: 12/28/23 07:42 Dose: 400 mg Documented By: ESTHER Melatonin (Melatonin 3 Mg Tablet) 6 mg PO BEDTIME PRN PRN Reason: Insomnia Metoprolol Succinate (Metoprolol Succinate Er 100 Mg Tab.Er.24h) 100 mg PO DAILY [facility]; Protocol Last Admin: 12/28/23 07:42 Dose: 100 mg Documented By: ESTHER Omeprazole (Omeprazole 20 Mg Capsule.Dr) 20 mg PO DAILY [facility] Last Admin: 12/28/23 07:42 Dose: 20 mg Documented By: ESTHER Ondansetron HCl (Ondansetron Hcl 4 Mg/2 Ml Vial) 4 mg IVPUSH Q8H PRN PRN Reason: Nausea and Vomiting Sodium Chloride (0.9 % Sodium Chloride Flush 3 Ml Syringe) 3 ml IVFLUSH QSHIFT [facility] Last Admin: 12/28/23 07:43 Dose: 3 ml Documented By: ESTHER Sodium Chloride (Sodium Chloride Tab 1 Gm Tablet) 1 gm PO BID [facility] Last Admin: 12/28/23 07:42 Dose: 1 gm Documented By: ESTHER Urea (Urea 15 Gm Powder) 30 gm PO BID [facility] Last Admin: 12/28/23 07:42 Dose: 30 gm Documented By: ESTHER Labs 12/28/23 06:11 12/28/23 12:05 Labs: Laboratory Results - last 24 hr 12/27/23 12/27/23 12/27/23 14:01 17:14 20:08 MCV MCH MCHC RDW Plt Count MPV Absolute Nucleated RBC Nucleated RBC % (auto) Anion Gap 18 19 Estim Creat Clear Calc 75.6 78.5 Estimated GFR > 60 > 60 Random Glucose 100 100 Uric Acid Calcium 9.4 9.9 Magnesium 1.6 TSH Random Cortisol Urine Osmolality 478 Ur Random Sodium 106.0 12/28/23 12/28/23 06:11 12:05 MCV 92.9 MCH 34.2 H MCHC 36.8 H RDW 10.8 L Plt Count 216 MPV 9.4 Absolute Nucleated RBC 0.000 Nucleated RBC % (auto) 0.0 Anion Gap 16 17 Estim Creat Clear Calc 76.5 69.5 Estimated GFR > 60 > 60 Random Glucose 92 105 Uric Acid 4.9 Calcium 10.3 H 10.8 H Magnesium 1.5 L TSH 1.33 Random Cortisol 20.6 Urine Osmolality Ur Random Sodium Assessment and Plan (1) Hypomagnesemia: Status: Acute (2) Acute hyponatremia: Status: Acute (3) Syncope: Status: Acute Plan Pt is a 58-year-old female with a PMH significant for?HTN who presents to the ED for evaluation of lightheadedness, dizziness, and syncopal episodes x2 while at work. Pt will be admitted to the hospital for treatment and further evaluation of syncopal episode in the setting of hyponatremia and hypomagnesemia. Syncope 2/2 electrolytes abnormalities? vasovagal ? No recurrence Orthostatics negative Monitor on telemetry, no abnormalities noticed PT eval Hyponatremia Unclear chronicity of it, seems more chronic and resistant likely SIADH given urine studies w normal cortisol and TSH CT head and chest negative for acute findings\masses Sodium remains around 124 after IVF, URea and salt tab Pt states chronically hyponatremic for some time pending SPEP Hold hydrochlorothiazide Fluid restriction for now Nephrology following Increase NaCl to 2gm bid, Urea 30mg bid as well Follow BNP Q6 with goal of correction 6-8 Q24 houts Hypomagnesemia Magnesium 1.5 , Give replacement Follow Mg Leukopenia, Anemia could be related to alcohol intake hx check iron, B12 and folate HTN EMS report patient hypotensive at 55/40 upon arrival, received 300 mL of NS has been normotensive to hypertensive in the ED hold hydrochlorothiazide restart metoprolol and Lisinopril GERD Continue omeprazole Alcohol use Patient reports drinking a couple of drinks after work each day Will monitor on CIWA Full Code DVT Prophylaxis: Lovenox Pt will require a hospitalization overnight for treatment of syncope in the setting of electrolyte abnormalities. Given patient's hyponatremia, will require hospitalization for careful sodium correction with close monitoring of labs Quality Stroke Does the patient have a stroke diagnosis?: No VTE Prior VTE?: No VTE Risk Level:: Medical - moderate - high VTE Device Contraindication: Treatment Not Indicated VTE Drug Contraindication: N/A - Med Ordered
--- NOTE | 2023-12-28 13:51 | P.PNNP_ITS ---
Subjective Subjective Date of Service: 12/28/23 Interval history: seen and evaluated this morning ;feels better overall; Na remains low at 124 Physical Exam 2 Vital Signs: Vital Signs: Last Vital Signs Temp 97.9 F 12/28/23 11:20 Pulse 68 12/28/23 11:20 Resp 18 12/28/23 11:20 BP 145/91 H 12/28/23 11:20 Pulse Ox 98 12/28/23 11:20 O2 Del Method Room Air 12/28/23 11:20 BMI result Body Mass Index 28.1 Const: General: no acute distress Orientation/consciousness: patient oriented x3 Eyes: EOM: EOMs intact bilaterally Neck: Neck: Yes supple Resp: Auscultation: diminished lung sounds Cardio: Rate: regular rate GI: Palpation (GI): Soft to palpation Neuro: General: patient oriented x3 and moves all extremities Objective Data Labs 12/28/23 06:11 12/28/23 12:05 Labs: Laboratory Results - last 24 hr 12/27/23 12/27/23 12/27/23 14:01 17:14 20:08 WBC RBC Hgb Hct MCV MCH MCHC RDW Plt Count MPV Absolute Nucleated RBC Nucleated RBC % (auto) Sodium 124 L 123 L Potassium 4.0 3.7 Chloride 86 L 86 L Carbon Dioxide 24 22 Anion Gap 18 19 BUN 11 13 Creatinine 0.81 0.78 Estim Creat Clear Calc 75.6 78.5 Estimated GFR > 60 > 60 Random Glucose 100 100 Uric Acid Calcium 9.4 9.9 Magnesium 1.6 TSH Random Cortisol Urine Osmolality 478 Ur Random Sodium 106.0 12/28/23 12/28/23 06:11 12:05 WBC 2.6 L RBC 3.39 L Hgb 11.6 L Hct 31.5 L MCV 92.9 MCH 34.2 H MCHC 36.8 H RDW 10.8 L Plt Count 216 MPV 9.4 Absolute Nucleated RBC 0.000 Nucleated RBC % (auto) 0.0 Sodium 124 L 124 L Potassium 4.0 4.1 Chloride 86 L 85 L Carbon Dioxide 26 26 Anion Gap 16 17 BUN 11 43 H Creatinine 0.80 0.88 Estim Creat Clear Calc 76.5 69.5 Estimated GFR > 60 > 60 Random Glucose 92 105 Uric Acid 4.9 Calcium 10.3 H 10.8 H Magnesium 1.5 L TSH 1.33 Random Cortisol 20.6 Urine Osmolality Ur Random Sodium Procedures Date of Service Date of Service: 12/28/23 Assessment & Plan Assessment and plan (1) Acute hyponatremia: Status: Acute (2) Hypomagnesemia: Status: Acute Plan Euvolemic Hyponatremia Has excess ADH Cortisol/Uric acid OK Needs F/U CXR/CT head if not done On PO NaCl & PO Urea 30 Gm bid Hypomag due to Mg wasting due to alcohol use Needs fluid restriction; Avoid rapid Na correction Labs AM; Shall F/U closely Progress Note: Quality Stroke Does the patient have a stroke diagnosis?: No
[2023-12-28] MEDS: Sodium Chloride Tab 1 GM TABLET 2 GM PO ×2 (15:16→20:58)
[2023-12-28 15:50] VITALS: BP 147/93; PULSE 75; RESP 20; TEMP 36.7; O2SAT 99
[2023-12-28 18:50] LABS: Anion Gap 16 (12-20); Blood Urea Nitrogen 34 mg/dL (9-16); Calcium 10.5 mg/dL (8.4-10.2); Carbon Dioxide 24 mmol/L (22-29); Chloride 90 mmol/L (96-108); Creatinine Clr Calc Pharmacy 72.8; Estimated Glomerular Filt Rate > 60; Glucose Random 109 mg/dL (60-115); Potassium 3.6 mmol/L (3.3-5.1); Sodium 126 mmol/L (135-145)
[2023-12-28 20:00] VITALS: BP 127/91; PULSE 73; RESP 16; TEMP 36; O2SAT 100
[2023-12-29] VITALS (7 sets, daily range): BP systolic 123–159; BP diastolic 83–96; PULSE 68–87; RESP 16–18; TEMP 36.2–37; O2SAT 93–100
[2023-12-29 07:15] LABS: Anion Gap 16 (12-20); Blood Urea Nitrogen 45 mg/dL (9-16); Calcium 10.5 mg/dL (8.4-10.2); Carbon Dioxide 25 mmol/L (22-29); Chloride 92 mmol/L (96-108); Creatinine Clr Calc Pharmacy 79.5; Estimated Glomerular Filt Rate > 60; Glucose Random 98 mg/dL (60-115); Iron 60 mcg/dL (30-160); Magnesium 1.5 mg/dL (1.6-2.6); Percent Iron Saturation 20 % (15-50); Potassium 3.7 mmol/L (3.3-5.1); Sodium 129 mmol/L (135-145); Total Iron Binding Capacity 303 mcg/dL (228-428); Unsaturated Iron Binding 243 ug/dL
[2023-12-29 07:29] LABS: Vitamin D 25-OH Total 28.4 ng/mL (>30)
[2023-12-29 07:42] LABS: Folate 10.2 ng/mL (> or = 4.0); Vitamin B12 429 pg/mL (200-900)
[2023-12-29] MEDS: Magnesium Oxide 400 MG TABLET PO ×2 (08:37→16:18)
[2023-12-29] MEDS: Urea 15 GM POWDER 30 GM PO ×2 (08:37→21:04)
[2023-12-29] MEDS: Metoprolol Succinate ER 100 MG TAB.ER.24H PO (08:38)
[2023-12-29] MEDS: Sodium Chloride Tab 1 GM TABLET 2 GM PO ×2 (08:38→21:05)
[2023-12-29] MEDS: lisinopriL 40 MG TABLET PO (08:38)
[2023-12-29] MEDS: Omeprazole 20 MG CAPSULE.DR PO (08:38)
[2023-12-29] MEDS: 0.9 % Sodium Chloride Flush 3 ML SYRINGE IVFLUSH ×3 (08:38→21:55)
[2023-12-29] MEDS: Enoxaparin Sodium 40 MG/0.4 ML SYRINGE SUBCUT (11:57)
--- NOTE | 2023-12-29 12:06 | HO.PM.IMPN ---
Subjective Subjective Date of Service: 12/29/23 Interval History: feeling better Physical Exam Vital Signs: Vital Signs: Last Vital Signs Temp 97.4 F 12/29/23 11:28 Pulse 73 12/29/23 11:28 Resp 18 12/29/23 11:28 BP 163/96 H 12/29/23 11:28 Pulse Ox 100 12/29/23 11:28 O2 Del Method Room Air 12/29/23 11:28 BMI result Body Mass Index 28.1 General: AO X 3, no acute distress Resp: CTA bilateral, no accessory muscles used CVS: S1,S2,RRR GI: soft, non tender, non distended Neuro: motor grossly intact, alert Psych: appropriate affect, appropriate insight Objective Data Active Medications Acetaminophen (Acetaminophen 325 Mg Tablet) 650 mg PO Q6H PRN PRN Reason: Pain, Mild (Pain Scale 1-3), fever or headache Benzonatate (Benzonatate 100 Mg Capsule) 100 mg PO TID PRN PRN Reason: Cough Calcium Carbonate (Calcium Carbonate 750 Mg Tab.Chew) 750 mg PO Q4H PRN PRN Reason: Heartburn Enoxaparin Sodium (Enoxaparin Sodium 40 Mg/0.4 Ml Syringe) 40 mg SUBCUT Q24H [facility] Last Admin: 12/29/23 11:57 Dose: 40 mg Documented By: ESTHER Lisinopril (Lisinopril 40 Mg Tablet) 40 mg PO DAILY [facility]; Protocol Last Admin: 12/29/23 08:38 Dose: 40 mg Documented By: ESTHER Magnesium Hydroxide (Milk Of Magnesia 30 Ml Oral.Susp) 30 ml PO DAILY PRN PRN Reason: Constipation Magnesium Oxide (Magnesium Oxide 400 Mg Tablet) 400 mg PO BIDPC [facility] Last Admin: 12/29/23 08:37 Dose: 400 mg Documented By: ESTHER Melatonin (Melatonin 3 Mg Tablet) 6 mg PO BEDTIME PRN PRN Reason: Insomnia Metoprolol Succinate (Metoprolol Succinate Er 100 Mg Tab.Er.24h) 100 mg PO DAILY [facility]; Protocol Last Admin: 12/29/23 08:38 Dose: 100 mg Documented By: ESTHER Omeprazole (Omeprazole 20 Mg Capsule.Dr) 20 mg PO DAILY [facility] Last Admin: 12/29/23 08:38 Dose: 20 mg Documented By: ESTHER Ondansetron HCl (Ondansetron Hcl 4 Mg/2 Ml Vial) 4 mg IVPUSH Q8H PRN PRN Reason: Nausea and Vomiting Sodium Chloride (0.9 % Sodium Chloride Flush 3 Ml Syringe) 3 ml IVFLUSH QSHIFT [facility] Last Admin: 12/29/23 08:38 Dose: 3 ml Documented By: ESTHER Sodium Chloride (Sodium Chloride Tab 1 Gm Tablet) 2 gm PO BID [facility] Last Admin: 12/29/23 08:38 Dose: 2 gm Documented By: ESTHER Urea (Urea 15 Gm Powder) 30 gm PO BID [facility] Last Admin: 12/29/23 08:37 Dose: 30 gm Documented By: ESTHER Labs 12/28/23 06:11 12/29/23 06:13 Labs: Laboratory Results - last 24 hr 12/28/23 12/28/23 12/29/23 12:05 18:10 06:13 Hold Purple Top SEE NOTE Anion Gap 17 16 16 Estim Creat Clear Calc 69.5 72.8 79.5 Estimated GFR > 60 > 60 > 60 Random Glucose 105 109 98 Calcium 10.8 H 10.5 H 10.5 H Magnesium 1.5 L Iron 60 TIBC 303 % Saturation 20 Unsat Iron Binding 243 Vitamin B12 429 25-OH Vitamin D Total 28.4 L Folate 10.2 Assessment and Plan (1) Hypomagnesemia: Status: Acute (2) Acute hyponatremia: Status: Acute (3) Syncope: Status: Acute Plan 58F PMH significant for?HTN, etoh dependence who presented to the ED for evaluation of lightheadedness, dizziness, and syncopal episodes x2 while at work. Syncope 2/2 hypotension, hypovolemia Hyponatremia Likely multifactorial, underlying SIADH, poor solute intake, primary polydipsia, HCTZ Nephrology following NaCl to 2gm bid, Urea 30mg bid as well Monitor BMP Hypomagnesemia Magnesium 1.5 , Given replacement Follow Mg Leukopenia, Anemia could be related to alcohol intake hx check B12 and folate HTN metoprolol and Lisinopril GERD Continue omeprazole Alcohol use Patient reports drinking a couple of drinks after work each day monitor on CIWA Full Code DVT Prophylaxis: Lovenox reason for continued hospitalization: Sodium below 130 Quality Stroke Does the patient have a stroke diagnosis?: No VTE Prior VTE?: No VTE Risk Level:: Medical - moderate - high VTE Device Contraindication: Treatment Not Indicated VTE Drug Contraindication: N/A - Med Ordered
[2023-12-29 12:53] LABS: Parathyroid Hormone Intact 25.1 pg/mL (8.7-77.1)
--- NOTE | 2023-12-29 13:26 | MHC.CM.PN ---
EMR REVIEWED, PT'S NA/MG REMAIN LOW, ANTIC PT WILL LIKELY DC HOME SELF CARE TOMORROW 12/29, PT WILL SELF TRANSPORT, CM WILL CONT TO FOLLOW DC NEEDS.
--- NOTE | 2023-12-29 13:43 | P.PNNP_ITS ---
Subjective Subjective Date of Service: 12/29/23 Interval history: feeling better; Wants to go home soon Physical Exam 2 Vital Signs: Vital Signs: Last Vital Signs Temp 97.4 F 12/29/23 11:28 Pulse 73 12/29/23 11:28 Resp 18 12/29/23 11:28 BP 144/84 H 12/29/23 11:28 Pulse Ox 100 12/29/23 11:28 O2 Del Method Room Air 12/29/23 11:28 BMI result Body Mass Index 28.1 Const: General: no acute distress Orientation/consciousness: patient oriented x3 Eyes: EOM: EOMs intact bilaterally Neck: Neck: Yes supple Resp: Auscultation: diminished lung sounds Cardio: Rate: regular rate GI: Palpation (GI): Soft to palpation Neuro: General: patient oriented x3 and moves all extremities Extrem: General: Yes no pedal edema Objective Data Labs 12/28/23 06:11 12/29/23 06:13 Labs: Laboratory Results - last 24 hr 12/28/23 12/29/23 12/29/23 18:10 06:13 07:13 Hold Purple Top SEE NOTE Sodium 126 L 129 L Potassium 3.6 3.7 Chloride 90 L 92 L Carbon Dioxide 24 25 Anion Gap 16 16 BUN 34 H 45 H Creatinine 0.84 0.77 Estim Creat Clear Calc 72.8 79.5 Estimated GFR > 60 > 60 Random Glucose 109 98 Calcium 10.5 H 10.5 H Magnesium 1.5 L Iron 60 TIBC 303 % Saturation 20 Unsat Iron Binding 243 Vitamin B12 429 25-OH Vitamin D Total 28.4 L Folate 10.2 PTH Intact 25.1 Procedures Date of Service Date of Service: 12/29/23 Assessment & Plan Assessment and plan (1) Acute hyponatremia: Status: Acute (2) Hypomagnesemia: Status: Acute Plan Euvolemic Hyponatremia Has excess ADH Cortisol/Uric acid OK CT head & chest OK On PO NaCl & PO Urea 30 Gm bid Hypomag due to Mg wasting due to alcohol use Needs fluid restriction; Avoid rapid Na correction Labs AM; Shall F/U closely Time Spent With Patient Time: . Progress Note: Quality Stroke Does the patient have a stroke diagnosis?: No
[2023-12-29 19:39] LABS: Prot Elec - Albumin 4.6 g/dL (3.8-4.8); Prot Elec - Alpha1 0.3 g/dL (0.2-0.3); Prot Elec - Alpha2 0.8 g/dL (0.5-0.9); Prot Elec - Beta 1 0.5 g/dL (0.4-0.6); Prot Elec - Beta 2 0.4 g/dL (0.2-0.5); Prot Elec - Gamma 1.2 g/dL (0.8-1.7); Prot Elec - Total Protein 7.7 g/dL (6.1-8.1)
[2023-12-30 03:22] VITALS: BP 138/89; PULSE 67; RESP 18; TEMP 36.3; O2SAT 100
--- NOTE | 2023-12-30 04:00 | PC.NURSE ---
pt a&ox4, blood pressure increased overnight (patient asymptomatic), Provider notified/aware, no new orders given. denies dizzines, med compliant, good affect, pleasant. Pt compliant with fluid restriction. NSR on telemetry. independent with ambulation and ADLs. No events overnight, safety and comfort maintained, call cruz in reach.
[2023-12-30 06:56] LABS: Hematocrit 31.5 % (37.0-47.0); Hemoglobin 11.2 g/dl (12.0-16.0); Mean Corpuscular HGB Conc 35.6 g/dl (31.0-35.0); Mean Corpuscular Volume 95.7 fL (80.0-98.0); Mean Platelet Volume 9.7 fL (9.4-12.3); Platelet Count 221 X10*3/uL (160-400); Red Blood Count 3.29 X10*6/uL (4.20-5.50); Red Cell Distribution Width 10.9 % (11.0-16.0); White Blood Count 3.8 X10*3/uL (4.8-10.8)
[2023-12-30 07:24] VITALS: BP 123/84; PULSE 76; RESP 18; TEMP 36.7; O2SAT 100
[2023-12-30 07:29] LABS: Anion Gap 17 (12-20); Blood Urea Nitrogen 55 mg/dL (9-16); Calcium 10.6 mg/dL (8.4-10.2); Carbon Dioxide 23 mmol/L (22-29); Chloride 94 mmol/L (96-108); Creatinine Clr Calc Pharmacy 79.5; Estimated Glomerular Filt Rate > 60; Glucose Fasting 94 mg/dL (60-99); Glucose Random 94 mg/dL (60-115); Potassium 3.8 mmol/L (3.3-5.1); Sodium 130 mmol/L (135-145)
[2023-12-30 07:34] LABS: Magnesium 1.3 mg/dL (1.6-2.6)
[2023-12-30] MEDS: Magnesium Oxide 400 MG TABLET PO (08:23)
[2023-12-30] MEDS: Sodium Chloride Tab 1 GM TABLET 2 GM PO (08:23)
[2023-12-30] MEDS: Omeprazole 20 MG CAPSULE.DR PO (08:23)
[2023-12-30] MEDS: Metoprolol Succinate ER 100 MG TAB.ER.24H PO (08:23)
[2023-12-30] MEDS: lisinopriL 40 MG TABLET PO (08:23)
[2023-12-30] MEDS: Urea 15 GM POWDER 30 GM PO (08:24)
[2023-12-30] MEDS: 0.9 % Sodium Chloride Flush 3 ML SYRINGE IVFLUSH (08:24)
[2023-12-30] MEDS: Magnesium Sulfate/H2O 2 GM/50 ML PIGGYBACK IV (08:24)
--- NOTE | 2023-12-30 08:58 | P.PNNP_ITS ---
Subjective Subjective Date of Service: 12/30/23 Interval history: feeling better; Wants to go home Physical Exam 2 Vital Signs: Vital Signs: Last Vital Signs Temp 98.0 F 12/30/23 07:24 Pulse 76 12/30/23 07:24 Resp 18 12/30/23 07:24 BP 123/84 12/30/23 07:24 Pulse Ox 100 12/30/23 07:24 O2 Del Method Room Air 12/30/23 07:24 BMI result Body Mass Index 28.1 Const: General: comfortable and no acute distress O rientation/consciousness: patient oriented x3 HEENT: Head: Yes normocephalic Mouth: Normal oral and palatal mucosa present Eyes: EOM: EOMs intact bilaterally Neck: Neck: Yes supple Resp: Auscultation: clear to auscultation bilaterally Cardio: Jugular venous distension: no JVD Rate: regular rate GI: Palpation (GI): Soft to palpation Auscultation: normal bowel sounds : General: Yes no CVA tenderness Back/Spine/Pelvis: Back: no CVA tenderness Skin: General skin exam: no rashes or lesions noted Neuro: General: patient oriented x3 and moves all extremities Extrem: General: Yes no pedal edema Objective Data Labs 12/30/23 05:51 12/30/23 05:51 Labs: Laboratory Results - last 24 hr 12/27/23 12/29/23 12/30/23 12:45 07:13 05:51 WBC 3.8 L RBC 3.29 L Hgb 11.2 L Hct 31.5 L MCV 95.7 MCH 34.0 H MCHC 35.6 H RDW 10.9 L Plt Count 221 MPV 9.7 Absolute Nucleated RBC 0.000 Nucleated RBC % (auto) 0.0 Sodium 130 L Potassium 3.8 Chloride 94 L Carbon Dioxide 23 Anion Gap 17 BUN 55 H Creatinine 0.77 Estim Creat Clear Calc 79.5 Estimated GFR > 60 Random Glucose 94 Fasting Glucose 94 Calcium 10.6 H Magnesium 1.3 L* Total Protein (PEP) 7.7 Albumin (PEP) 4.6 Cihru-9-Lzlgtcutr 0.3 Dmajn-2-Bwyakrzia 0.8 Bqwn-8-Yfjrnznw 0.5 Pejz-4-Xsuwrcqg 0.4 Gamma Globulins 1.2 PEP Interpretation SEE NOTE PTH Intact 25.1 Procedures Date of Service Date of Service: 12/30/23 Assessment & Plan Assessment and plan (1) Acute hyponatremia: Status: Acute (2) Hypomagnesemia: Status: Acute Plan Euvolemic Hyponatremia Has excess ADH Cortisol/Uric acid OK CT head & chest OK On PO NaCl & PO Urea 30 Gm bid; Could D/C PO Urea Could go home on PO NaCl 1 Gram bid Hypomag due to Mg wasting due to alcohol use Needs fluid restriction;Shall F/U closely in the office if D/Ollie Time Spent With Patient Time: . Progress Note: Quality Stroke Does the patient have a stroke diagnosis?: No
--- NOTE | 2023-12-30 11:03 | PM.DS ---
DS: Providers Provider Date of Service: 12/30/23 Date of admission: 12/27/23 12:21 Primary care physician: ELVIA Soliman Consults: 12/27/23 12:21 Consult to Nephrology Routine Consulting Provider: [facility] Reason for consultation: Hyponatremia DS: Diagnosis Discharge Diagnosis (1) Acute hyponatremia: Status: Acute (2) Hypomagnesemia: Status: Acute DS: Summary Hospital Course Hospital Course: from initial hpi: 58-year-old female with a PMH significant for?HTN who presents to the ED for evaluation of lightheadedness, dizziness, and syncopal episodes x2 while at work. 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 Reports she was in her normal state of health last night and this morning. But while sitting at her desk pt experienced sudden onset diaphoresis, lightheaded, and dizzy. Coworkers witnessed to brief episodes of syncope while sitting at desk. No fall or trauma or head strike. Patient denies any recent illness. No nausea or vomiting or diarrhea. Currently does not feel lightheaded or dizzy, but overall weak with a slight headache. No chest pain/pressure, palpitations. No abdominal pain. Denies shortness of breath or difficulty breathing. Denies any significant cardiac history, though notes father had both a stroke and an AK, and brother has CAD with a triple bypass. 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 Did not seek medical treatment for that episode. Reports consuming a Folic beverages after work daily. Occasionally smokes marijuana but denies nicotine use. No other illicit substance use. Patient states has been chronically hyponatremic for some time, but unclear what her levels are or for how long they have been low. Her PCP wants her to follow up with Nephrology for her hyponatremia, but patient is not satisfied with her current foot tender and has yet to establish new care. Reports has been on hydrochlorothiazide for approximately 1 year. In the ED pt was patient's vitals were stable and WNL, though EMS noted BP of 55/40 at 1st examination which improved after 300 mL of NS. Labs were significant for slight leukopenia of 3.1, H&H 11.9/31.7, sodium 124, chloride 88, magnesium 1.2, bilirubin 1.1, and AST 57. Renal function WNL. Troponins negative. Tested negative for flu, RSV, and COVID. EKG demonstrated sinus rhythm with first-degree AV block and nonspecific diffuse T-wave abnormality without evidence of significant ST elevations or depressions. Pt was treated with 1 L IVF, Mag sulfate, and sodium chloride 1g p.o. Pt will be admitted to the hospital for treatment and further evaluation of syncopal episode in the setting of hyponatremia and hypomagnesemia. hospital course: Patient was admitted for syncope secondary to hypotension hypovolemia. Was given IV fluids and hypovolemia and hypotension resolved. For hyponatremia this was multifactorial due to underlying SIADH, poor solute intake, primary polydipsia, hydrochlorothiazide. Was seen by Nephrology, started on sodium chloride tablets and urea. Sodium improved and appropriate rate and is 130 at discharge. We will continue on sodium tablets and follow up with Nephrology as outpatient. For hypomagnesemia was given replacement and will continue replacement as outpatient. For hypertension was continued on metoprolol lisinopril. For GERD was continued on omeprazole. For alcohol dependence patient was educated on abstinence, noted to have leukopenia and anemia, did not have any issues with withdrawal. Patient is feeling better will be discharged home. Time Attestation Discharge Coordination Time (in mins): 37 Quality: Safe Use of Opioids Does Pt have an Active Cancer Diagnosis on the Problem List?: No Quality: Stroke Does the patient have a stroke diagnosis?: No Physical Exam Vital Signs: Vital Signs: Last Vital Signs Temp 98.0 F 12/30/23 07:24 Pulse 76 12/30/23 07:24 Resp 18 12/30/23 07:24 BP 123/84 12/30/23 07:24 Pulse Ox 100 12/30/23 07:24 O2 Del Method Room Air 12/30/23 07:24 BMI result Body Mass Index 28.1 General: AO X 3, no acute distress Resp: CTA bilateral, no accessory muscles used CVS: S1,S2,RRR GI: soft, non tender, non distended Neuro: motor grossly intact, alert Psych: appropriate affect, appropriate insight DS: Data Data Completed and Pending Labs on day of discharge: Laboratory Results - last 24 hr 12/27/23 12/29/23 12/30/23 12:45 07:13 05:51 WBC 3.8 L RBC 3.29 L Hgb 11.2 L Hct 31.5 L MCV 95.7 MCH 34.0 H MCHC 35.6 H RDW 10.9 L Plt Count 221 MPV 9.7 Absolute Nucleated RBC 0.000 Nucleated RBC % (auto) 0.0 Sodium 130 L Potassium 3.8 Chloride 94 L Carbon Dioxide 23 Anion Gap 17 BUN 55 H Creatinine 0.77 Estim Creat Clear Calc 79.5 Estimated GFR > 60 Random Glucose 94 Fasting Glucose 94 Calcium 10.6 H Magnesium 1.3 L* Total Protein (PEP) 7.7 Albumin (PEP) 4.6 Ayioa-0-Eqamhvchd 0.3 Ccipd-7-Rpdhvjpwf 0.8 Lnzo-7-Flwnnkmz 0.5 Vaxn-8-Psgfowek 0.4 Gamma Globulins 1.2 PEP Interpretation SEE NOTE PTH Intact 25.1 Discharge Plan Discharge Anticipated Discharge Date/Time: 12/30/23 11:00 Patient Disposition: Home, Self-Care Discharge Diagnosis: hyponatermia Referrals: Clement Craft MD [Physician] - 1 Week Seun Cotton PA [Primary Care Provider] - 1 Week Discharge Medications: New magnesium oxide 400 mg (241.3 mg magnesium) Tablet 400 mg PO BIDPC Qty: 180 0RF sodium chloride 1,000 mg Tablet,Soluble 1,000 mg PO TID Qty: 270 0RF Continued metoprolol succinate 100 mg tablet extended release 24 hr 100 mg PO DAILY omeprazole 20 mg capsule,delayed release(DR/EC) 20 mg PO DAILY ibuprofen 600 mg Tablet 600 mg PO Q6H PRN (Reason: Pain) lisinopril 40 mg tablet 40 mg PO DAILY Discontinued hydrochlorothiazide 25 mg tablet 25 mg PO DAILY Discharge Orders: Discharge Order (Routine); Ordered 12/30/23 Ordered By: Toby Jerez Diet: no etoh Activity on Discharge: As tolerated Stand Alone Forms: Patient Portal Discharge page Print Language: [place] Care Plan Goals: recovery Health Concerns: low sodium, low magnesium Plan of Treatment: fluid restrict, sodium tablets, magnesium po, follow up with nephro, avoid etoh Assessment: see above
--- NOTE | 2023-12-30 11:08 | MHC.CM.PN ---
Patient has been medically cleared for dc to home today, self care.
[2023-12-30 11:15] VITALS: BP 129/88; PULSE 87; RESP 20; TEMP 37.2; O2SAT 98
[2024-01-03 01:39] LABS: VITAMIN D (1,25 OH) D3 24 pg/mL; Vit D (1,25-Dihydroxy) Total 24 pg/mL (18-72); Vitamin D (1,25 OH) D2 <8 pg/mL
== END 2023-12-30 12:24 | disposition home or self-care (01) | DRG 426 ==
LOC: HO.ED 10:40 → HO.EDOVER 12:33 → HO.IMC 14:12
PROVIDERS: Internal Medicine Nephrology; Student in an Organized Health Care Education/Training Program; Admitting Provider Student in an Organized Health Care Education/Training Program; Emergency Provider Emergency Medicine; PCP Physician Assistant Medical; Visit Provider Internal Medicine
DX: E22.2 Syndrome of inappropriate secretion of antidiuretic hormone (principal); I95.9 Hypotension, unspecified; D64.9 Anemia, unspecified; E83.42 Hypomagnesemia; F10.20 Alcohol dependence, uncomplicated; T50.2X5A Adverse effect of carbonic-anhydrase inhibitors, benzothiadiazides and other diuretics, initial encounter; E86.1 Hypovolemia; I10 Essential (primary) hypertension; K21.9 Gastro-esophageal reflux disease without esophagitis; Z20.822 Contact with and (suspected) exposure to COVID-19; Z79.899 Other long term (current) drug therapy
CPT/HCPCS: 0241U; 36415; 70450; 71250; 80048; 80053; 80061; 82306; 82533; 82607; 82652; 82746; 82947; 83540; 83735; 83930; 83935; 83970; 84165; 84300; 84443; 84484; 84550; 85025; 85027; 93005; 94799; 99285; J1650; J3475

== ENCOUNTER → 2023-12-27 08:30 | Outpatient (BNV) | payer SELFPAY | PROVIDERS: Emergency Provider Emergency Medicine; Visit Provider Internal Medicine Cardiovascular Disease | DX: R94.31 Abnormal electrocardiogram [ECG] [EKG] (principal) | CPT/HCPCS: 93010 ==

== ENCOUNTER → 2023-12-27 12:21 | Outpatient (BNV) | payer OTHER, SELFPAY | PROVIDERS: Admitting Provider Student in an Organized Health Care Education/Training Program; Emergency Provider Emergency Medicine; PCP Physician Assistant Medical; Visit Provider Internal Medicine Nephrology | DX: E87.1 Hypo-osmolality and hyponatremia (principal); E83.42 Hypomagnesemia | CPT/HCPCS: 99223; 99231; 99232 ==

== ENCOUNTER → 2023-12-27 12:21 | Outpatient (BNV) | payer OTHER, SELFPAY | PROVIDERS: Admitting Provider Student in an Organized Health Care Education/Training Program; Emergency Provider Emergency Medicine; PCP Physician Assistant Medical; Visit Provider Student in an Organized Health Care Education/Training Program | DX: R55 Syncope and collapse (principal); E87.1 Hypo-osmolality and hyponatremia; E83.42 Hypomagnesemia; I10 Essential (primary) hypertension | CPT/HCPCS: 99223; 99232; 99233; 99239 ==

== ENCOUNTER 2024-01-06 15:41 | Outpatient (AMB) | payer OTHER, SELFPAY ==
[2024-01-06 15:38] VITALS: BP 128/90; PULSE 64; O2SAT 94; BMI 27.0
--- NOTE | 2024-01-06 15:38 | HO.NEPHOV_ITS ---
Vital Signs 01/06/24 15:38 Height 5 ft 5 in Weight 162 lb BMI 27.0 BP 128/90 H Blood Pressure Location Lt brachial Position Sitting Pulse 64 Pulse Source Pulse Oximeter Pulse Oximetry (%) 94 Oxygen Delivery Method Room Air Intake Visit Reasons: Weakness and low bp 55/60 per EMS/ LVM Genetics Nurse Required: No Accompanied by: Self / Same As Patient Allergies Penicillins Allergy (Unknown, Verified 01/06/24 15:42) Unknown Medication List - Last Reconciled 01/06/24 by Clement Craft MD ibuprofen 600 mg PO Q6H PRN lisinopril 40 mg PO DAILY magnesium oxide 400 mg PO BIDPC metoprolol succinate ER 100 mg PO DAILY omeprazole 20 mg PO DAILY sodium chloride 1,000 mg PO TID HPI Comments Details: Nelia is a pleasant 58-year-old woman with a history of hypertension was recently hospitalized for severe hyponatremia. Prior to this she was drinking vodka at least 4 drinks a day. At the time admission serum sodium was 124. She was on lisinopril 40 mg with HCTZ 25 mg. HCTZ was discontinued. She was given urea powder during hospitalization. She was started on salt tablets 1 g p.o. t.i.d.. Serum sodium was gradually increased and at the time of discharge on December 29 sodium was 130 millimoles. Of note she had hypo magnesemia and mild hypercalcemia. Vitamin-D level was margin low but intact PTH was at 25. At present she is on p.o. fluid restriction. She is on salt tablets 3 times a day. No specific complaints today. Currently he is not consuming [facility] Medical History HTN (hypertension) Social History Household Members: Family Housing: House Do you presently have visiting nurse or other home services: No Alcohol intake: current Alcohol intake frequency: 0-2 drinks per day Alcohol type: hard liquor Comment: patient low fall risk Patient Tobacco Use Status: Never used Tobacco Substance Use Type: Marijuana service: No Physical Exam Vital Signs: Last Vital Signs Pulse 64 01/06/24 15:38 BP 128/90 H 01/06/24 15:38 Pulse Ox 94 01/06/24 15:38 Oxygen Delivery Method Room Air 01/06/24 15:38 BMI result Body Mass Index 27.0 Const General: comfortable; No acute distress Orientation/consciousness: patient oriented x3 Eyes General: appearance normal, both eyes and all related structures Visual Guadarrama: normal visual guadarrama by confrontation Neck Neck: Yes supple and Yes no JVD Resp Effort & Inspection: normal respiratory effort and respiratory effort not decreased Auscultation: rhonchi Cardio Palpation: no palpable S3 and no palpable S4 Heart sounds: no rubs GI Inspection: Yes normal to inspection Palpation (GI): Soft to palpation Percussion: Yes normal to percussion Auscultation: normal bowel sounds General: Yes no CVA tenderness Back/Spine/Pelvis Back: no CVA tenderness Skin General skin exam: no petechiae and no purpura Neuro General: patient oriented x3 and no focal motor deficits Extrem General: No clubbing and No edema Results Reviewed Nephrology Results: Hgb 11.2 g/dl (12.0-16.0) L 12/30/23 WBC 3.8 X10*3/uL (4.8-10.8) L 12/30/23 Plt Count 221 X10*3/uL (160-400) 12/30/23 Sodium 130 mmol/L (135-145) L 12/30/23 Potassium 3.8 mmol/L (3.3-5.1) 12/30/23 Chloride 94 mmol/L (96-108) L 12/30/23 Carbon Dioxide 23 mmol/L (22-29) 12/30/23 BUN 55 mg/dL (9-16) H 12/30/23 Creatinine 0.77 mg/dL (0.5-1.4) 12/30/23 Calcium 10.6 mg/dL (8.4-10.2) H 12/30/23 PTH Intact 25.1 pg/mL (8.7-77.1) 12/29/23 Assessment & Plan Assessment & Plan (1) Hypomagnesemia: Code(s): E83.42 - Hypomagnesemia Category: Medical (2) Hypo-osmolality and hyponatremia: Code(s): E87.1 - Hypo-osmolality and hyponatremia Category: Medical (3) Anemia: Code(s): D64.9 - Anemia, unspecified Category: Medical Plan Nelia is a pleasant 58-year-old woman with a history of hypertension who has had significant hyponatremia. Hyponatremia was most likely due to decreased free water clearance in the setting of alcohol intake and use of HCTZ. HCTZ has been discontinued. She was stopped drinking vodka Goal is to maintain serum sodium more than 133 millimoles. I will check serum sodium today. Based on serum sodium I will gradually taper the salt tablets and see if we can discontinue this. Given the history of hypertension I would prefer not to use salt tablets. Certainly avoid thiazide type diuretics in future. Lisinopril has also been implicated in contributing to hyponatremia. If she has persistent hyponatremia I will switch lisinopril to valsartan. As for the fluid intake I have asked her to restrict oral free water intake to 1 L per 24 hours. She can replace this with other types of fluids like Gatorade or Pedialyte. Recheck magnesium and continue replacement. She has anemia with mild hypercalcemia. Check serum electrophoresis. . Orders: Orders Phosphorus 1 Day E83.42 - Hypomagnesemia, E87.1 - Hypo-osmolality and hyponatremia Parathyroid Hormone Intact 1 Day E83.42 - Hypomagnesemia, E87.1 - Hypo- osmolality and hyponatremia Magnesium 7 Days E83.42 - Hypomagnesemia Total Protein Urine Random 1 Day E87.1 - Hypo-osmolality and hyponatremia UA and rflx microscopic 1 Day E87.1 - Hypo-osmolality and hyponatremia Osmolality, Serum 1 Day E87.1 - Hypo-osmolality and hyponatremia Osmolality Urine 1 Day E87.1 - Hypo-osmolality and hyponatremia Protein Electrophoresis, Serum 1 Day D64.9 - Anemia, unspecified Basic Metabolic Panel 1 Day E83.42 - Hypomagnesemia, E87.1 - Hypo-osmolality and hyponatremia Magnesium 1 Day E83.42 - Hypomagnesemia Basic Metabolic Panel 7 Days E83.42 - Hypomagnesemia, E87.1 - Hypo-osmolality and hyponatremia Sodium Urine Random 1 Day E87.1 - Hypo-osmolality and hyponatremia Creatinine Urine 1 Day E87.1 - Hypo-osmolality and hyponatremia Coding Level of Care Code Est Pt Level 4 (90909) Diagnoses Hypomagnesemia E83.42 Hypo-osmolality and hyponatremia E87.1 Anemia D64.9
== END 2024-01-06 16:09 | disposition home or self-care (01) ==
PROVIDERS: PCP Physician Assistant Medical; Visit Provider Internal Medicine Hypertension Specialist
DX: E83.42 Hypomagnesemia (principal); E87.1 Hypo-osmolality and hyponatremia; D64.9 Anemia, unspecified
CPT/HCPCS: 99214

== ENCOUNTER → 2024-01-06 15:41 | Outpatient (BNVA) | payer OTHER, SELFPAY | PROVIDERS: PCP Physician Assistant Medical; Visit Provider Internal Medicine Hypertension Specialist ==

== ENCOUNTER 2024-01-07 07:10 | Outpatient (REF) | payer OTHER, SELFPAY ==
[2024-01-07 08:00] LABS: Appearance Urine Clear; Color Urine Yellow; Glucose Urine UA Negative (Negative); Leukocyte Esterase Urine Moderate (2+) (Negative); Nitrite Urine Negative (Negative); UMIC TRIGGER UA YES; Urine Blood Negative (Negative); Urine Ketones Negative (Negative); Urine Protein Negative (Neg-Trace)
[2024-01-07 08:08] LABS: Bacteria Urine None Seen (None Seen); Hyaline Casts Urine 0-2 /LPF (0-2); RBC Urine 0-2 /HPF (0-2); WBC Urine 0-5 /HPF (0-5)
[2024-01-07 08:30] LABS: Anion Gap 15 (12-20); Blood Urea Nitrogen 10 mg/dL (9-16); Calcium 9.7 mg/dL (8.4-10.2); Carbon Dioxide 22 mmol/L (22-29); Chloride 103 mmol/L (96-108); Estimated Glomerular Filt Rate > 60; Glucose Random 79 mg/dL (60-115); Magnesium 1.5 mg/dL (1.6-2.6); Phosphorus 4.2 mg/dL (2.7-4.5); Potassium 3.8 mmol/L (3.3-5.1); Sodium 136 mmol/L (135-145)
[2024-01-07 08:39] LABS: Creatinine Urine 59.86 mg/dL; Total Protein Urine Random < 7 mg/dL (<12)
[2024-01-07 08:43] LABS: Parathyroid Hormone Intact 33.9 pg/mL (8.7-77.1)
[2024-01-07 08:51] LABS: Osmolality Urine 292 mosm/kg (373-1093)
[2024-01-07 08:51] LABS: Osmolality, Serum 283 mosm/kg (281-305)
[2024-01-11 16:53] LABS: Prot Elec - Albumin 4.1 g/dL (3.8-4.8); Prot Elec - Alpha1 0.3 g/dL (0.2-0.3); Prot Elec - Alpha2 0.8 g/dL (0.5-0.9); Prot Elec - Beta 1 0.5 g/dL (0.4-0.6); Prot Elec - Beta 2 0.5 g/dL (0.2-0.5); Prot Elec - Gamma 1.1 g/dL (0.8-1.7); Prot Elec - Total Protein 7.2 g/dL (6.1-8.1)
== END 2024-01-07 07:11 | disposition home or self-care (01) ==
LOC: HO.LAB 07:10
PROVIDERS: PCP Physician Assistant Medical; Visit Provider Internal Medicine Hypertension Specialist
DX: E83.42 Hypomagnesemia (principal); E87.1 Hypo-osmolality and hyponatremia; D64.9 Anemia, unspecified
CPT/HCPCS: 36415; 80048; 81001; 81003; 82570; 83735; 83930; 83935; 83970; 84100; 84156; 84165; 84300

== ENCOUNTER 2024-01-13 07:11 | Outpatient (REF) | payer OTHER, SELFPAY ==
[2024-01-13 08:17] LABS: Appearance Urine Clear; Color Urine Yellow; Glucose Urine UA Negative (Negative); Leukocyte Esterase Urine Small (1+) (Negative); Nitrite Urine Negative (Negative); PH 6.5 (5.0-9.0); UMIC TRIGGER UA YES; Urine Blood Negative (Negative); Urine Ketones Negative (Negative); Urine Protein Negative (Neg-Trace)
[2024-01-13 08:31] LABS: Bacteria Urine None Seen (None Seen); Hyaline Casts Urine 0-2 /LPF (0-2); RBC Urine 0-2 /HPF (0-2); WBC Urine 0-5 /HPF (0-5)
[2024-01-13 08:46] LABS: Anion Gap 14 (12-20); Blood Urea Nitrogen 11 mg/dL (9-16); Calcium 10.2 mg/dL (8.4-10.2); Carbon Dioxide 25 mmol/L (22-29); Chloride 102 mmol/L (96-108); Estimated Glomerular Filt Rate > 60; Glucose Random 83 mg/dL (60-115); Magnesium 1.6 mg/dL (1.6-2.6); Potassium 3.9 mmol/L (3.3-5.1); Sodium 137 mmol/L (135-145)
== END 2024-01-13 07:12 | disposition home or self-care (01) ==
LOC: HO.LAB 07:11
PROVIDERS: Visit Provider Internal Medicine Hypertension Specialist
DX: E83.42 Hypomagnesemia (principal); E87.1 Hypo-osmolality and hyponatremia
CPT/HCPCS: 36415; 80048; 81001; 83735

== ENCOUNTER 2024-01-20 07:10 | Outpatient (REF) | payer OTHER, SELFPAY ==
[2024-01-20 07:42] LABS: Appearance Urine Clear; Color Urine Yellow; Glucose Urine UA Negative (Negative); Leukocyte Esterase Urine Small (1+) (Negative); Nitrite Urine Negative (Negative); Specific Gravity - Urine <= 1.005 (1.005-1.025); UMIC TRIGGER UA YES; Urine Blood Negative (Negative); Urine Ketones Negative (Negative); Urine Protein Negative (Neg-Trace)
[2024-01-20 07:55] LABS: Bacteria Urine None Seen (None Seen); Hyaline Casts Urine 0-2 /LPF (0-2); RBC Urine 0-2 /HPF (0-2); WBC Urine 0-5 /HPF (0-5)
[2024-01-20 08:05] LABS: Anion Gap 14 (12-20); Blood Urea Nitrogen 10 mg/dL (9-16); Calcium 9.8 mg/dL (8.4-10.2); Carbon Dioxide 24 mmol/L (22-29); Chloride 101 mmol/L (96-108); Estimated Glomerular Filt Rate > 60; Glucose Random 69 mg/dL (60-115); Potassium 4.2 mmol/L (3.3-5.1); Sodium 135 mmol/L (135-145)
== END 2024-01-20 07:11 | disposition home or self-care (01) ==
LOC: HO.LAB 07:10
PROVIDERS: PCP Physician Assistant Medical; Visit Provider Internal Medicine Hypertension Specialist
DX: E87.1 Hypo-osmolality and hyponatremia (principal)
CPT/HCPCS: 36415; 80048; 81001

== ENCOUNTER 2024-02-01 07:09 | Outpatient (REF) | payer OTHER, SELFPAY ==
[2024-02-01 08:45] LABS: Appearance Urine Clear; Color Urine Yellow; Glucose Urine UA Negative (Negative); Leukocyte Esterase Urine Moderate (2+) (Negative); Nitrite Urine Negative (Negative); UMIC TRIGGER UA YES; Urine Blood Negative (Negative); Urine Ketones Negative (Negative); Urine Protein Negative (Neg-Trace)
[2024-02-01 09:06] LABS: Bacteria Urine Trace (None Seen); Hyaline Casts Urine 0-2 /LPF (0-2); RBC Urine 0-2 /HPF (0-2); WBC Urine 0-5 /HPF (0-5)
== END 2024-02-01 07:10 | disposition home or self-care (01) ==
LOC: HO.LAB 07:09
PROVIDERS: PCP Physician Assistant Medical; Visit Provider Internal Medicine Hypertension Specialist
DX: E87.1 Hypo-osmolality and hyponatremia (principal)
CPT/HCPCS: 81001

== ENCOUNTER 2024-02-07 15:49 | Outpatient (AMB) | payer OTHER, SELFPAY ==
[2024-02-07 15:48] VITALS: BP 128/74; PULSE 78; O2SAT 98; BMI 27.1
--- NOTE | 2024-02-07 15:48 | HO.NEPHOV_ITS ---
Vital Signs 02/07/24 15:48 Height 5 ft 5 in Weight 163 lb BMI 27.1 BP 128/74 Blood Pressure Location Rt brachial Position Sitting Pulse 78 Pulse Source Pulse Oximeter Pulse Oximetry (%) 98 Oxygen Delivery Method Room Air Intake Visit Reasons: Acute hyponatremia/ LVM Boarding Room Fixer Required: No Accompanied by: Self / Same As Patient Allergies Penicillins Allergy (Unknown, Verified 02/07/24 15:49) Unknown Medication List - Last Reconciled 02/07/24 by Clement Craft MD ibuprofen 600 mg PO Q6H PRN magnesium oxide 400 mg PO BIDPC metoprolol succinate ER 100 mg PO DAILY omeprazole 20 mg PO DAILY sodium chloride 1,000 mg PO BID valsartan 160 mg PO DAILY HPI Comments Details: Nelia is a pleasant 58-year-old woman with a history of hypertension was recently hospitalized for severe hyponatremia. Prior to this she was drinking vodka at least 4 drinks a day. At the time admission serum sodium was 124. She was on lisinopril 40 mg with HCTZ 25 mg. HCTZ was discontinued. She was given urea powder during hospitalization. She was started on salt tablets 1 g p.o. t.i.d.. Serum sodium was gradually increased and at the time of discharge on December 29 sodium was 130 millimoles. Of note she had hypo magnesemia and mild hypercalcemia. Vitamin-D level was margin low but intact PTH was at 25. At present she is on p.o. fluid restriction. She is on salt tablets 2 times a day Occasional alcohol intake No specific complaints today. Currently he is not consuming alcohol [facility] Medical History HTN (hypertension) Social History Household Members: Family Housing: House Do you presently have visiting nurse or other home services: No Alcohol intake: current Alcohol intake frequency: 0-2 drinks per day Alcohol type: hard liquor Comment: patient low fall risk Patient Tobacco Use Status: Never used Tobacco Substance Use Type: Marijuana service: No Physical Exam Vital Signs: Last Vital Signs Pulse 78 02/07/24 15:48 BP 128/74 02/07/24 15:48 Pulse Ox 98 02/07/24 15:48 Oxygen Delivery Method Room Air 02/07/24 15:48 BMI result Body Mass Index 27.1 Results Reviewed Nephrology Results: Hgb 11.2 g/dl (12.0-16.0) L 12/30/23 WBC 3.8 X10*3/uL (4.8-10.8) L 12/30/23 Plt Count 221 X10*3/uL (160-400) 12/30/23 Sodium 135 mmol/L (135-145) 01/20/24 Potassium 4.2 mmol/L (3.3-5.1) 01/20/24 Chloride 101 mmol/L (96-108) 01/20/24 Carbon Dioxide 24 mmol/L (22-29) 01/20/24 BUN 10 mg/dL (9-16) 01/20/24 Creatinine 0.79 mg/dL (0.5-1.4) 01/20/24 Calcium 9.8 mg/dL (8.4-10.2) 01/20/24 Phosphorus 4.2 mg/dL (2.7-4.5) 01/07/24 PTH Intact 33.9 pg/mL (8.7-77.1) 01/07/24 Urine Protein Negative mg/dL (Neg-Trace) 02/01/24 Urine Creatinine 59.86 mg/dL 01/07/24 Assessment & Plan Assessment & Plan (1) Hypo-osmolality and hyponatremia: Code(s): E87.1 - Hypo-osmolality and hyponatremia Category: Medical (2) Hypomagnesemia: Code(s): E83.42 - Hypomagnesemia Category: Medical (3) Anemia: Code(s): D64.9 - Anemia, unspecified Category: Medical Plan Nelia is a pleasant 58-year-old woman with a history of hypertension who has had significant hyponatremia. Hyponatremia was most likely due to decreased free water clearance in the setting of alcohol intake and use of HCTZ. HCTZ has been discontinued. She was stopped drinking vodka Goal is to maintain serum sodium more than 133 millimoles. Certainly avoid thiazide type diuretics in future. Lisinopril has also been implicated in contributing to hyponatremia. Switched to valsartan 160 mg a day Recheck serum sodium and if stable stable I we will decreased sodium chloride tablets to 1 a day and eventually try to taper and discontinued. As for the fluid intake I have asked her to restrict oral free water intake to 1 L per 24 hours. She can replace this with other types of fluids like Gatorade or Pedialyte. Hypercalcemia stance corrected. SPEP no monoclonal proteins. . Orders: Orders Basic Metabolic Panel 1 Week Clement Craft MD E87.1 - Hypo- osmolality and hyponatremia Comprehensive Met. Panel 3 Weeks Clement Craft MD E87.1 - Hypo- osmolality and hyponatremia Magnesium 1 Week Clement Craft MD E83.42 - Hypomagnesemia Medications: New valsartan 160 mg PO DAILY 30 tabs 3RF Clement Craft MD Changed From sodium chloride 1,000 mg PO TID 270 tabs 0RF To sodium chloride 1,000 mg PO BID Toby Jerez MD Coding Level of Care Code Est Pt Level 3 (24003) Diagnoses Hypo-osmolality and hyponatremia E87.1 Hypomagnesemia E83.42 Anemia D64.9
== END 2024-02-07 16:12 | disposition home or self-care (01) ==
PROVIDERS: PCP Physician Assistant Medical; Visit Provider Internal Medicine Hypertension Specialist
DX: E87.1 Hypo-osmolality and hyponatremia (principal); E83.42 Hypomagnesemia; D64.9 Anemia, unspecified
CPT/HCPCS: 99213

== ENCOUNTER → 2024-02-07 15:49 | Outpatient (BNVA) | payer OTHER, SELFPAY | PROVIDERS: PCP Physician Assistant Medical; Visit Provider Internal Medicine Hypertension Specialist ==

== ENCOUNTER 2024-03-02 07:28 | Outpatient (REF) | payer OTHER, SELFPAY ==
[2024-03-02 08:23] LABS: Alanine Aminotransferase 9 U/L (0-31); Albumin Level 4.2 g/dL (3.5-5.0); Alkaline Phosphatase 93 U/L (39-117); Anion Gap 12 (12-20); Aspartate Amino Transferase 17 U/L (5-31); Bilirubin Total 1.1 mg/dL (0.0-1.0); Blood Urea Nitrogen 12 mg/dL (9-16); Calcium 9.6 mg/dL (8.4-10.2); Carbon Dioxide 27 mmol/L (22-29); Chloride 102 mmol/L (96-108); Estimated Glomerular Filt Rate > 60; Glucose Random 95 mg/dL (60-115); Magnesium 1.6 mg/dL (1.6-2.6); Potassium 3.7 mmol/L (3.3-5.1); Sodium 137 mmol/L (135-145); Total Protein 7.7 g/dL (6.5-8.0)
[2024-03-02 08:24] LABS: Appearance Urine Clear; Color Urine Yellow; Glucose Urine UA Negative (Negative); Leukocyte Esterase Urine Small (1+) (Negative); Nitrite Urine Negative (Negative); Specific Gravity - Urine 1.015 (1.005-1.025); UMIC TRIGGER UA YES; Urine Blood Negative (Negative); Urine Ketones Negative (Negative); Urine Protein Negative (Neg-Trace)
[2024-03-02 08:41] LABS: Bacteria Urine None Seen (None Seen); Hyaline Casts Urine 0-2 /LPF (0-2); RBC Urine 0-2 /HPF (0-2); WBC Urine 0-5 /HPF (0-5)
== END 2024-03-02 07:29 | disposition home or self-care (01) ==
LOC: HO.LAB 07:28
PROVIDERS: PCP Physician Assistant Medical; Visit Provider Internal Medicine Hypertension Specialist
DX: E87.1 Hypo-osmolality and hyponatremia (principal); E83.42 Hypomagnesemia
CPT/HCPCS: 36415; 80053; 81001; 83735

== ENCOUNTER 2024-05-08 06:40 | Outpatient (REF) | payer OTHER, SELFPAY ==
[2024-05-08 07:30] LABS: Appearance Urine Clear; Color Urine Yellow; Glucose Urine UA Negative (Negative); Leukocyte Esterase Urine Trace (Negative); Nitrite Urine Negative (Negative); PH 5.5 (5.0-9.0); UMIC TRIGGER UA YES; Urine Blood Negative (Negative); Urine Ketones Negative (Negative); Urine Protein Negative (Neg-Trace)
[2024-05-08 07:35] LABS: Bacteria Urine None Seen (None Seen); Hyaline Casts Urine 0-2 /LPF (0-2); RBC Urine 0-2 /HPF (0-2); WBC Urine 0-5 /HPF (0-5)
[2024-05-08 08:03] LABS: Anion Gap 16 (12-20); Blood Urea Nitrogen 9 mg/dL (9-16); Calcium 9.9 mg/dL (8.4-10.2); Carbon Dioxide 24 mmol/L (22-29); Chloride 100 mmol/L (96-108); Estimated Glomerular Filt Rate > 60; Glucose Random 106 mg/dL (60-115); Potassium 3.5 mmol/L (3.3-5.1); Sodium 136 mmol/L (135-145)
== END 2024-05-08 06:41 | disposition home or self-care (01) ==
LOC: HO.LAB 06:40
PROVIDERS: PCP Physician Assistant Medical; Visit Provider Internal Medicine Hypertension Specialist
DX: E83.42 Hypomagnesemia (principal); E87.1 Hypo-osmolality and hyponatremia; D64.9 Anemia, unspecified
CPT/HCPCS: 36415; 80048; 81001

== ENCOUNTER 2024-05-08 14:40 | Outpatient (AMB) | payer OTHER, SELFPAY ==
[2024-05-08 14:44] VITALS: BP 156/98; PULSE 69; O2SAT 98; BMI 27.6
--- NOTE | 2024-05-08 14:44 | HO.NEPHOV ---
Vital Signs 05/08/24 14:44 05/08/24 15:01 Height 5 ft 5 in Weight 166 lb BMI 27.6 BP 156/98 H 144/84 H Blood Pressure Location Lt brachial Lt brachial Position Sitting Pulse 69 Pulse Source Pulse Oximeter Pulse Oximetry (%) 98 Oxygen Delivery Method Room Air Intake Visit Reasons: Acute hyponatremia/ LVM Entry Processor Required: No Accompanied by: Self / Same As Patient Allergies Penicillins Allergy (Unknown, Verified 05/08/24 14:46) Unknown Medication List - Last Reconciled 05/08/24 by Clement Craft MD ibuprofen 600 mg PO Q6H PRN magnesium oxide 400 mg PO BIDPC metoprolol succinate ER 100 mg PO DAILY omeprazole 20 mg PO DAILY sodium chloride 1,000 mg PO BID valsartan 160 mg PO DAILY venlafaxine ER 75 mg PO DAILY HPI Comments Details: Nelia is a pleasant 58-year-old woman with a history of hypertension was recently hospitalized for severe hyponatremia. Prior to this she was drinking vodka at least 4 drinks a day. At the time admission serum sodium was 124. She was on lisinopril 40 mg with HCTZ 25 mg. HCTZ was discontinued. She was given urea powder during hospitalization. She was started on salt tablets 1 g p.o. t.i.d.. Serum sodium was gradually increased and at the time of discharge on December 29 sodium was 130 millimoles. Of note she had hypo magnesemia and mild hypercalcemia. Vitamin-D level was margin low but intact PTH was at 25. At present she is on p.o. fluid restriction. She is on salt tablets 2 times a day Occasional alcohol intake No specific complaints today. Currently she is not consuming alcohol 05/08/2024. Currently on 1 salt tablet today. Ran out of magnesium about a week ago. Complains of weight gain [facility] Medical History HTN (hypertension) Social History Household Members: Family Housing: House Do you presently have visiting nurse or other home services: No Alcohol intake: current Alcohol intake frequency: 0-2 drinks per day Alcohol type: hard liquor Comment: patient low fall risk Patient Tobacco Use Status: Never used Tobacco Substance Use Type: Marijuana service: No Physical Exam Vital Signs: Last Vital Signs Pulse 69 05/08/24 14:44 BP 144/84 H 05/08/24 15:01 Pulse Ox 98 05/08/24 14:44 Oxygen Delivery Method Room Air 05/08/24 14:44 BMI result Body Mass Index 27.6 Comfortable Neck supple no JVD. Lungs entry equal no rales. Heart S1-S2 heard no gallop or rub. Abdomen soft nontender. Neuro alert awake oriented. No asterixis. Extremities no edema. Results Reviewed Nephrology Results: Hgb 11.2 g/dl (12.0-16.0) L 12/30/23 WBC 3.8 X10*3/uL (4.8-10.8) L 12/30/23 Plt Count 221 X10*3/uL (160-400) 12/30/23 Sodium 136 mmol/L (135-145) 05/08/24 Potassium 3.5 mmol/L (3.3-5.1) 05/08/24 Chloride 100 mmol/L (96-108) 05/08/24 Carbon Dioxide 24 mmol/L (22-29) 05/08/24 BUN 9 mg/dL (9-16) 05/08/24 Creatinine 0.81 mg/dL (0.5-1.4) 05/08/24 Calcium 9.9 mg/dL (8.4-10.2) 05/08/24 Phosphorus 4.2 mg/dL (2.7-4.5) 01/07/24 PTH Intact 33.9 pg/mL (8.7-77.1) 01/07/24 Urine Protein Negative mg/dL (Neg-Trace) 05/08/24 Urine Creatinine 59.86 mg/dL 01/07/24 Assessment & Plan Assessment & Plan (1) Hypo-osmolality and hyponatremia: Code(s): E87.1 - Hypo-osmolality and hyponatremia Category: Medical (2) Hypomagnesemia: Code(s): E83.42 - Hypomagnesemia Category: Medical (3) Anemia: Code(s): D64.9 - Anemia, unspecified Category: Medical Plan Nelia is a pleasant 58-year-old woman with a history of hypertension who has had significant hyponatremia. Hyponatremia was most likely due to decreased free water clearance in the setting of alcohol intake and use of HCTZ. HCTZ has been discontinued. She was stopped drinking vodka Goal is to maintain serum sodium more than 133 millimoles. Certainly avoid thiazide type diuretics in future. Lisinopril has also been implicated in contributing to hyponatremia. Switched to valsartan 160 mg a day Recheck serum sodium and if stable stable I will discontinue sodium chloride tablets As for the fluid intake I have asked her to restrict oral free water intake to 1 L per 24 hours. She can replace this with other types of fluids like Gatorade or Pedialyte. Hypercalcemia stands corrected. SPEP no monoclonal proteins. Check serum magnesium and TSH levels as well . Orders: Orders TSH reflex Free T4 1 Week E83.42 - Hypomagnesemia, E87.1 - Hypo-osmolality and hyponatremia Magnesium 1 Week E83.42 - Hypomagnesemia, E87.1 - Hypo-osmolality and hyponatremia Electrolytes 1 Week E83.42 - Hypomagnesemia, E87.1 - Hypo-osmolality and hyponatremia Medications: Refilled valsartan 160 mg PO DAILY 90 tabs 3RF Coding Level of Care Code Est Pt Level 4 (89865) Diagnoses Hypo-osmolality and hyponatremia E87.1 Hypomagnesemia E83.42 Anemia D64.9
[2024-05-08 15:01] VITALS: BP 144/84
== END 2024-05-08 15:04 | disposition home or self-care (01) ==
PROVIDERS: PCP Physician Assistant Medical; Visit Provider Internal Medicine Hypertension Specialist
DX: E87.1 Hypo-osmolality and hyponatremia (principal); E83.42 Hypomagnesemia; D64.9 Anemia, unspecified
CPT/HCPCS: 99214

== ENCOUNTER 2024-10-19 06:39 | Outpatient (REF) | payer OTHER, SELFPAY ==
[2024-10-19 08:05] LABS: TSH reflex Free T4 2.26 uIU/mL (0.32-4.0)
[2024-10-19 08:33] LABS: Anion Gap 14 (12-20); Carbon Dioxide 25 mmol/L (22-29); Chloride 99 mmol/L (96-108); Potassium 3.7 mmol/L (3.3-5.1); Sodium 134 mmol/L (135-145)
[2024-10-19 09:00] LABS: Magnesium 1.3 mg/dL (1.6-2.6)
== END 2024-10-19 06:40 | disposition home or self-care (01) ==
LOC: HO.LAB 06:39
PROVIDERS: PCP Physician Assistant Medical; Visit Provider Internal Medicine Hypertension Specialist
DX: E87.1 Hypo-osmolality and hyponatremia (principal); E83.42 Hypomagnesemia
CPT/HCPCS: 36415; 80051; 83735; 84443

== ENCOUNTER 2024-11-17 13:26 | Outpatient (AMB) | payer OTHER, SELFPAY ==
--- NOTE | 2024-11-17 13:27 | HO.NEPHOV ---
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 Prior to this she was drinking vodka at least 4 drinks a day. At the time admission serum sodium was 124. She was on lisinopril 40 mg with HCTZ 25 mg. HCTZ was discontinued. She was given urea powder during hospitalization. She was started on salt tablets 1 g p.o. t.i.d.. Serum sodium was gradually increased and at the time of discharge on December 29 sodium was 130 millimoles. Of note she had hypo magnesemia and mild hypercalcemia. Vitamin-D level was margin low but intact PTH was at 25. At present she is on p.o. fluid restriction. She is on salt tablets 2 times a day Occasional alcohol intake No specific complaints today. Currently she is not consuming alcohol 05/08/2024. Currently on 1 salt tablet today. Ran out of magnesium about a week ago. Complains of weight gain [facility] Medical History HTN (hypertension) Social History Household Members: Family Housing: House Do you presently have visiting nurse or other home services: No Alcohol intake: current Alcohol intake frequency: 0-2 drinks per day Alcohol type: hard liquor Comment: patient low fall risk Patient Tobacco Use Status: Never used Tobacco Substance Use Type: Marijuana service: No Physical Exam Vital Signs: Last Vital Signs Pulse 89 11/17/24 13:28 BP 140/90 H 11/17/24 13:28 Pulse Ox 97 11/17/24 13:28 Oxygen Delivery Method Room Air 11/17/24 13:28 BMI result Body Mass Index 28.0 Comfortable Neck supple no JVD. Lungs entry equal no rales. Heart S1-S2 heard no gallop or rub. Abdomen soft nontender. Neuro alert awake oriented. No asterixis. Extremities no edema. Results Reviewed Nephrology Results: Sodium 134 mmol/L (135-145) L 10/19/24 Potassium 3.7 mmol/L (3.3-5.1) 10/19/24 Chloride 99 mmol/L (96-108) 10/19/24 Carbon Dioxide 25 mmol/L (22-29) 10/19/24 BUN 9 mg/dL (9-16) 05/08/24 Creatinine 0.81 mg/dL (0.5-1.4) 05/08/24 Calcium 9.9 mg/dL (8.4-10.2) 05/08/24 Phosphorus 4.2 mg/dL (2.7-4.5) 01/07/24 PTH Intact 33.9 pg/mL (8.7-77.1) 01/07/24 Urine Protein Negative mg/dL (Neg-Trace) 05/08/24 Urine Creatinine 59.86 mg/dL 01/07/24 Assessment & Plan Assessment & Plan (1) Hypo-osmolality and hyponatremia: Code(s): E87.1 - Hypo-osmolality and hyponatremia Category: Medical (2) Hypomagnesemia: Code(s): E83.42 - Hypomagnesemia Category: Medical (3) Anemia: Code(s): D64.9 - Anemia, unspecified Category: Medical Plan Nelia is a pleasant 59-year-old woman with a history of hypertension who has had significant hyponatremia. Hyponatremia was most likely due to decreased free water clearance in the setting of alcohol intake and use of HCTZ. HCTZ has been discontinued. She was stopped drinking vodka Goal is to maintain serum sodium more than 133 millimoles. Certainly avoid thiazide type diuretics in future. Lisinopril has also been implicated in contributing to hyponatremia. Switched to valsartan 160 mg a day Recheck serum sodium and if stable stable I will discontinue sodium chloride tablets As for the fluid intake I have asked her to restrict oral free water intake to 1 L per 24 hours. She can replace this with other types of fluids like Gatorade or Pedialyte. Hypercalcemia stands corrected. SPEP no monoclonal proteins. 11/17/24 Continue hypotonic fludi restriction Restart MgO 400 mg BID . Orders: Orders Basic Metabolic Panel 6 Months E83.42 - Hypomagnesemia, E87.1 - Hypo-osmolality and hyponatremia Magnesium 6 Months E83.42 - Hypomagnesemia, E87.1 - Hypo-osmolality and hyponatremia Basic Metabolic Panel 8 Weeks E83.42 - Hypomagnesemia, E87.1 - Hypo-osmolality and hyponatremia Magnesium 8 Weeks E83.42 - Hypomagnesemia, E87.1 - Hypo-osmolality and hyponatremia Medications: Refilled magnesium oxide 400 mg PO BIDPC 180 tabs 1RF Coding Level of Care Code Est Pt Level 4 (43319) Diagnoses Hypo-osmolality and hyponatremia E87.1 Hypomagnesemia E83.42 Anemia D64.9
[2024-11-17 13:28] VITALS: BP 140/90; PULSE 89; O2SAT 97; BMI 28.0
--- OUTSIDE RECORDS SUMMARY | 2024-11-17 13:29 | XMS_ITS | Data Portability ---
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 Patient understood and agreed with the plan. [email or web address] Not available 01/05/2024 08:38:56 04/18/2024 04/18/2024 This service was provided using telemedicine. Patient consented to telephone visit [facility]. Provider was located in the office. No other persons participated in the telemedicine visit except for the patient unless otherwise indicated here. Total time of visit was 24 minutes. [email or web address] Not available 04/18/2024 16:40:32 Plan of Treatment Reminders Order Date Submit Date Provider Last Modified By Organization Details Last Modified Time Details Appointments None recorde d. Lab magnesi um, serum or plasma 2023 024 LEANDRO [facility] (Centralized Electronic Ordering - All Locations), Patient Can Go To The Location Of Their Choice, [address] 5 09:40:54 vitamin D, 25-hydr oxy, total, serum 2023 024 [email or web address] [facility], [address], [place], [address], 12/04/202 4 17:18:14 lipid panel, serum 2023 024 [email or web address] [facility] (Centralized Electronic Ordering - All Locations), Patient Can Go To The Location Of Their Choice, 16:51:01 CBC w/ auto diff 2023 024 [email or web address] [facility] (Centralized Electronic Ordering - All Locations), Patient Can Go To The Location Of Their Choice, 5 16:51:00 CMP, serum or plasma 2023 024 [email or web address] [facility] (Centralized Electronic Ordering - All Locations), Patient Can Go To The Location Of Their Choice, 16:51:01 TSH, ultra-s ensitiv e, serum 2023 024 LEANDRO [facility] (Centralized Electronic Ordering - All Locations), Patient Can Go To The Location Of Their Choice, 4 16:22:37 vitamin B12, serum 2023 024 [email or web address] [facility], [address], [place], [address], 5 13:05:09 folate, serum 2023 024 [email or web address] [facility], [address], [place], [address], 5 13:05:09 ferriti n, serum or plasma 2023 024 [email or web address] [facility], [address], [place], [address], 5 13:05:09 retic count, blood 2023 024 [email or web address] [facility], [address], [place], [address], 5 13:05:10 CBC w/ auto diff 2023 024 [email or web address] [facility], [address], [place], [address], 5 13:05:10 TIBC (total iron-bi nding capacit y), serum 2023 024 [email or web address] [facility], [address], [place], [address], 5 13:05:10 urinaly sis, dipstic k 2023 024 [email or web address] In-Office Order, Internal Use Only DO Not Attach Compendium DO Not Attach Compendium, Do Not Delete/merge, [id number] 4 16:30:29 urinaly sis complet e, reflex culture 2023 024 LEANDRO [facility], [address], [place], [address], 4 06:08:18 BMP, serum or plasma 2023 024 LEANDRO [facility] (Centralized Electronic Ordering - All Locations), Patient Can Go To The Location Of Their Choice, 4 10:05:46 HFE gene mutatio n analysi s, blood or tissue 2023 024 [email or web address] [facility] (Centralized Electronic Ordering - All Locations), Patient Can Go To The Location Of Their Choice, 5 13:05:10 lipid panel, serum 2023 024 [email or web address] [facility] (Centralized Electronic Ordering - All Locations), Patient Can Go To The Location Of Their Choice, 5 13:05:09 CMP, serum or plasma 2023 024 [email or web address] [facility] (Centralized Electronic Ordering - All Locations), Patient Can Go To The Location Of Their Choice, 5 13:05:09 gamma-g lutamyl transfe rase (ggt), serum 2023 024 [email or web address] [facility] (Centralized Electronic Ordering - All Locations), Patient Can Go To The Location Of Their Choice, [address] 5 13:05:10 Referral nutridelvin onist/d puneet miles 2023 024 [email or web address] Not available 4 10:02:30 Procedures cerumen removal (PROC) 2023 [place] In-Office Order, Internal Use Only DO Not Attach Compendium DO Not Attach Compendium, Do Not Delete/merge, [id number] 4 09:11:49 Surgeries None recorde d. Imaging None recorde d. 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 and to monitor dietary sodium. Will monitor home blood pressures and bring readings to appointments. Patient preferences and goals incorporated in plan and updated/modifie d as needed to reflect progress toward goal. 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 and to monitor dietary sodium. Will monitor home blood pressures and bring readings to appointments. Patient preferences and goals incorporated in plan and updated/modifie d as needed to reflect progress toward goal.Pt advised and agrees to work on self-monitoring behaviors; begin an appropriate diet for weight loss (such as a low carbohydrate diet), to do moderate exercise (such as walking) for approximately 150 minutes per week; and to identify desirable and timely rewards that will reinforce achievement of specific weight loss goals. pmadden Not available 02/17/2024 10:25:16 Patient Instructions Encounter Date Encounter Id Patient Instructions Last Modified By Organization Details Last Modified Time 10/13/2023 [id number] Medications (OTC, herbal therapies, supplements) reviewed and reconciled with patient and or caregiver, including potential side effects, drug interactions, instructions, and the consequences of not taking medication. Reviewed potential barriers to medication adherence, such as side effects from medication or cost of medication. [email or web address] Not available 10/13/2023 16:02:12 01/05/2024 [id number] [facility], all current and discharge medications (OTC, herbal therapies, supplements) reviewed and reconciled with patient and or caregiver, including potential side effects, drug interactions, instructions, and the consequences of not taking medication. Reviewed potential barriers to medication adherence, such as side effects from medication or cost of medication. [email or web address] Not available 01/05/2024 08:43:24 02/16/2024 [id number] When You Want to Lose Weight: Care Instructions [email or web address] Not available 02/16/2024 16:22:26 Nutrition Referral and Weight Management Follow-up Information pmadden Not available 02/16/2024 16:22:26 A healthy lifestyle: care instructions pmadden Not available 02/16/2024 16:22:25 Well Visit, Ages 18 to 65: Care Instructions pmadden Not available 02/16/2024 16:22:26 Medications (OTC, herbal therapies, supplements) reviewed and reconciled with patient and or caregiver, including potential side effects, drug interactions, instructions, and the consequences of not taking medication. Reviewed potential barriers to medication adherence, such as side effects from medication or cost of medication. pmadden Not available 02/16/2024 16:12:42 04/18/2024 [id number] encouraged pt to check outstanding labs as directed [email or web address] Not available 04/18/2024 16:31:19 Medications (OTC, herbal therapies, supplements) reviewed and reconciled with patient and or caregiver, including potential side effects, drug interactions, instructions, and the consequences of not taking medication. Reviewed potential barriers to medication adherence, such as side effects from medication or cost of medication. 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 5 Not Available [facility] ([facility]) [address] [place], [address], 10/16/2023 06:08:18 10/13/1910/14/2023 UA WITH CULTU RE REFLE X urine-color Yellow yellow Not Available [facility] ([facility]) [address] [place], [address], 10/16/2023 06:08:18 10/13/1910/14/2023 UA WITH CULTU RE REFLE X appearance Clear clear Not Available [facility] ([facility]) [address] [place], [address], 10/16/2023 06:08:18 10/13/1910/14/2023 UA WITH CULTU RE REFLE X WBC esterase Trace negati ve abnormal Not Available [facility] ([facility]) [address] [place], [address], 10/16/2023 06:08:18 10/13/19 24 10/14/2023 UA WITH CULTU RE REFLE X protein Negati ve negati ve/tra ce Not Available [facility] ([facility]) [address] [facility], [place], [address], 10/16/2023 06:08:18 10/13/19 24 10/14/2023 UA WITH CULTU RE REFLE X glucose Negati ve negati ve Not Available [facility] ([facility]) [address] [facility], [place], [address], 10/16/2023 06:08:18 10/13/19 24 10/14/2023 UA WITH CULTU RE REFLE X ketones Negati ve negati ve Not Available [facility] ([facility]) [address] [place], [address], 10/16/2023 06:08:18 10/13/19 24 10/14/2023 UA WITH CULTU RE REFLE X occult blood Negati ve negati ve Not Available [facility] ([facility]) [address] [facility], [place], [address], 10/16/2023 06:08:18 10/13/19 24 10/14/2023 UA WITH CULTU RE REFLE X bilirubin Negati ve negati ve Not Available [facility] ([facility]) [address] [place], [address], 10/16/2023 06:08:18 10/13/19 24 10/14/2023 UA WITH CULTU RE REFLE X urobilinogen ,semi-qn 1.0 mg/dL 0.2-1. 0 Not Available [facility] ([facility]) [address] [place], [address], 10/16/2023 06:08:18 10/13/19 24 10/14/2023 UA WITH CULTU RE REFLE X nitrite, urine Positi ve negati ve abnormal Not Available [facility] ([facility]) [address] [facility], [place], [address], 10/16/2023 06:08:18 10/13/19 24 10/14/2023 UA WITH CULTU RE REFLE X microscopic examination See below: Micro scopi c was indic ated and was perfo rmed. Not Available [facility] ([facility]) [address] [facility], [place], [address], 10/16/2023 06:08:18 10/13/19 24 10/14/2023 UA WITH CULTU RE REFLE X WBC None seen /hpf 0 - 5 Not Available [facility] ([facility]) [address] [facility], [place], [address], 10/16/2023 06:08:18 10/13/19 24 10/14/2023 UA WITH CULTU RE REFLE X RBC 0-2 /hpf 0 - 2 Not Available [facility] ([facility]) [address] [facility], [place], [address], 10/16/2023 06:08:18 10/13/19 24 10/14/2023 UA WITH CULTU RE REFLE X epithelial cells (non renal) 0-10 /hpf 0 - 10 Not Available [facility] ([facility]) [address] [facility], [place], [address], 10/16/2023 06:08:18 10/13/19 24 10/14/2023 UA WITH CULTU RE REFLE X epithelial cells (renal) COKEMAN Not Available [facility] ([facility]) [address] [facility], [place], [address], 10/16/2023 06:08:18 10/13/19 24 10/14/2023 UA WITH CULTU RE REFLE X casts None seen /lpf none seen Not Available [facility] ([facility]) [address] [facility], [place], [address], 10/16/2023 06:08:18 10/13/19 24 10/14/2023 UA WITH CULTU RE REFLE X cast type COKEMAN Not Available [facility] ([facility]) [address], [place], [address], 10/16/2023 06:08:18 10/13/19 24 10/14/2023 UA WITH CULTU RE REFLE X crystals COKEMAN Not Available [facility] ([facility]) [address], [place], [address], 10/16/2023 06:08:18 10/13/19 24 10/14/2023 UA WITH CULTU RE REFLE X crystal type COKEMAN Not Available [facility] ([facility]) [address], [place], [address], 10/16/2023 06:08:18 10/13/19 24 10/14/2023 UA WITH CULTU RE REFLE X mucus threads COKEMAN Not Available [facility] ([facility]) [address], [place], [address], 10/16/2023 06:08:18 10/13/19 24 10/14/2023 UA WITH CULTU RE REFLE X bacteria None seen none seen/f ew Not Available [facility] ([facility]) [address], [place], [address], 10/16/2023 06:08:18 10/13/19 24 10/14/2023 UA WITH CULTU RE REFLE X yeast COKEMAN Not Available [facility] ([facility]) [address], [place], [address], 10/16/2023 06:08:18 10/13/19 24 10/14/2023 UA WITH CULTU RE REFLE X trichomonas COKEMAN Not Available [facility] ([facility]) [address], [place], [address], 10/16/2023 06:08:18 10/13/19 24 10/14/2023 UA WITH CULTU RE REFLE X comment COKEMAN Not Available [facility] ([facility]) [address] [place], [address], 10/16/2023 06:08:18 10/13/19 24 10/14/2023 UA WITH CULTU RE REFLE X urinalysis reflex Commen t This speci men has refle xed to a Urine Cultu re. Not Available [facility] ([facility]) [address] [facility], [place], [address], 10/16/2023 06:08:18 10/13/19 24 10/15/2023 UA WITH CULTU RE REFLE X urine culture, routine Final report Not Available [facility] ([facility]) [address] [facility], [place], [address], 10/16/2023 06:08:18 10/13/19 24 10/15/2023 UA WITH CULTU RE REFLE X result 1 COMMEN T Cultu re shows less than 10,00 0 colon y formi ng units of bacte eleazar per lai liter of urine . This colon y count is not gener ally consi dered to be clini cristela signi fican t. Not Available [facility] ([facility]) [address] [place], [address], 10/16/2023 06:08:18 10/13/19 24 10/18/2023 UA WITH CULTU RE REFLE X specific gravity TNP Test not perfo rmed. No urine speci men recei mine. Not Available [facility] ([facility]) [address] [place], [address], 10/18/2023 10:05:45 10/13/19 24 10/18/2023 UA WITH CULTU RE REFLE X pH TNP Test not perfo rmed Not Available [facility] ([facility]) [address] [place], [address], 10/18/2023 10:05:45 10/13/19 24 10/18/2023 UA WITH CULTU RE REFLE X urine-color COKEMAN Not Available [facility] ([facility]) [address] [facility], [place], [address], 10/18/2023 10:05:45 10/13/19 24 10/18/2023 UA WITH CULTU RE REFLE X appearance COKEMAN Not Available [facility] ([facility]) [address] [facility], [place], [address], 10/18/2023 10:05:45 10/13/19 24 10/18/2023 UA WITH CULTU RE REFLE X WBC esterase COKEMAN Not Available [facility] ([facility]) [address] [facility], [place], [address], 10/18/2023 10:05:45 10/13/19 24 10/18/2023 UA WITH CULTU RE REFLE X protein TNP Test not perfo rmed Not Available [facility] ([facility]) [address] [facility], [place], [address], 10/18/2023 10:05:45 10/13/19 24 10/18/2023 UA WITH CULTU RE REFLE X glucose TNP Test not perfo rmed Not Available [facility] ([facility]) [address] [facility], [place], [address], 10/18/2023 10:05:45 10/13/19 24 10/18/2023 UA WITH CULTU RE REFLE X ketones TNP Test not perfo rmed Not Available [facility] ([facility]) [address] [place], [address], 10/18/2023 10:05:45 10/13/19 24 10/18/2023 UA WITH CULTU RE REFLE X occult blood COKEMAN Not Available [facility] ([facility]) [address] [place], [address], 10/18/2023 10:05:45 10/13/19 24 10/18/2023 UA WITH CULTU RE REFLE X bilirubin COKEMAN Not Available [facility] ([facility]) [address] [facility] [place], [address], 10/18/2023 10:05:45 10/13/19 24 10/18/2023 UA WITH CULTU RE REFLE X urobilinogen ,semi-qn COKEMAN Not Available [facility] ([facility]) [address] [facility] [place], [address], 10/18/2023 10:05:45 10/13/19 24 10/18/2023 UA WITH CULTU RE REFLE X nitrite, urine COKEMAN Not Available [facility] ([facility]) [address] [facility] [place], [address], 10/18/2023 10:05:45 10/13/19 24 10/18/2023 UA WITH CULTU RE REFLE X microscopic examination COKEMAN Not Available [facility] ([facility]) [address] [facility] [place], [address], 10/18/2023 10:05:45 10/13/19 24 10/18/2023 UA WITH CULTU RE REFLE X urinalysis reflex COKEMAN Not Available [facility] ([facility]) [address] [facility] [place], [address], 10/18/2023 10:05:45 10/13/19 24 10/14/2023 BASIC METAB OLIC PANEL (8) glucose 91 mg/dL 70-99 Not Available [facility] ([facility]) [address] [facility] [place], [address], 10/18/2023 10:05:46 10/13/19 24 10/14/2023 BASIC METAB OLIC PANEL (8) BUN 15 mg/dL 6-24 Not Available [facility] ([facility]) [address] [facility] [place], [address], 10/18/2023 10:05:46 10/13/19 24 10/14/2023 BASIC METAB OLIC PANEL (8) creatinine 1.25 mg/dL 0.57-1 .00 above high normal Not Available [facility] ([facility]) [address] [place], [address], 10/18/2023 10:05:46 10/13/19 24 10/14/2023 BASIC METAB OLIC PANEL (8) eGFR 50 mL/mi n/1.7 3 >59 below low normal Not Available [facility] ([facility]) [address] [place], [address], 10/18/2023 10:05:46 10/13/19 24 10/14/2023 BASIC METAB OLIC PANEL (8) BUN/creatini ne ratio 12 9-23 Not Available [facility] ([facility]) [address] [facility] [place], [address], 10/18/2023 10:05:46 10/13/19 24 10/14/2023 BASIC METAB OLIC PANEL (8) sodium 130 mmol/ L 134-14 4 below low normal Not Available [facility] ([facility]) [address] [place], [address], 10/18/2023 10:05:46 10/13/19 24 10/14/2023 BASIC METAB OLIC PANEL (8) potassium 4.2 mmol/ L 3.5-5. 2 Not Available [facility] ([facility]) [address] [place], [address], 10/18/2023 10:05:46 10/13/19 24 10/14/2023 BASIC METAB OLIC PANEL (8) chloride 86 mmol/ L 96-106 below low normal Not Available [facility] ([facility]) [address] [facility] [place], [address], 10/18/2023 10:05:46 10/13/19 24 10/14/2023 BASIC METAB OLIC PANEL (8) carbon dioxide, total 23 mmol/ L 20-29 Not Available [facility] ([facility]) [address] [facility], [place], [address], 10/18/2023 10:05:46 10/13/19 24 10/14/2023 BASIC METAB OLIC PANEL (8) calcium 9.9 mg/dL 8.7-10 .2 Not Available [facility] ([facility]) [address] [facility], [place], [address], 10/18/2023 10:05:46 10/13/19 24 10/18/[address] PROBL EM request problem TNP Test not perfo rmed. No urine speci men recei mine. TEST: [id number] UA with Cultu re Refle x Not Available [facility] ([facility]) [address] [facility], [place], [address], 10/18/2023 10:05:47 10/13/19 24 10/13/2023 urina lysis , dipst ick Leukocytes Small Not Available In-Offi ce Order Internal Use Only DO Not Attach Compendium DO Not Attach Compendium, Do Not Delete/merge, [id number] 10/13/2023 15:26:21 10/13/19 24 10/13/2023 urina lysis , dipst ick Nitritie positi ve Not Available In-Office Order Internal Use Only DO Not Attach Compendium DO Not Attach Compendium, Do Not Delete/merge, [id number] 10/13/2023 15:26:21 10/13/19 24 10/13/2023 urina lysis , dipst ick Urobilinogen 1 Not Available In-Of fice Order Internal Use Only DO Not Attach Compendium DO Not Attach Compendium, Do Not Delete/merge, [id number] 10/13/2023 15:26:21 10/13/19 24 10/13/2023 urina lysis , dipst ick Protein Negati ve Not Available In-Office Order Internal Use Only DO Not Attach Compendium DO Not Attach Compendium, Do Not Delete/merge, 10/13/2023 15:26:21 10/13/19 24 10/13/2023 urina lysis , dipst ick pH 7.0 Not Available In-Office Order Internal Use Only DO Not Attach Compendium DO Not Attach Compendium, Do Not Delete/merge, 10/13/2023 15:26:21 10/13/19 24 10/13/2023 urina lysis , dipst ick Blood Negati ve Not Available In-Office Order Internal Use Only DO Not Attach Compendium DO Not Attach Compendium, Do Not Delete/merge, 10/13/2023 15:26:21 10/13/19 24 10/13/2023 urina lysis , dipst ick Specific [place] 1.005 Not Available In-Off ice Order Internal Use Only DO Not Attach Compendium DO Not Attach Compendium, Do Not Delete/merge, 10/13/2023 15:26:21 10/13/19 24 10/13/2023 urina lysis , dipst ick Ketone Negati ve Not Available In-Office Order Internal Use Only DO Not Attach Compendium DO Not Attach Compendium, Do Not Delete/merge, 10/13/2023 15:26:21 10/13/19 24 10/13/2023 urina lysis , dipst ick Bilirubin Negati ve Not Available In-Office Order Internal Use Only DO Not Attach Compendium DO Not Attach Compendium, Do Not Delete/merge, 10/13/2023 15:26:21 10/13/19 24 10/13/2023 urina lysis , dipst ick Glucose Negati ve Not Available In-Office Order Internal Use Only DO Not Attach Compendium DO Not Attach Compendium, Do Not Delete/merge, 10/13/2023 15:26:21 10/13/19 24 10/13/2023 urina lysis , dipst ick Appearance Turbid Not Available In-Offi ce Order Internal Use Only DO Not Attach Compendium DO Not Attach Compendium, Do Not Delete/merge, 10/13/2023 15:26:21 05/01/10/13/2023 urina lysis , dipst ick Color [place] Not Available In-Office Order Internal Use Only DO Not Attach Compendium DO Not Attach Compendium, Do Not Delete/merge, [id number] 10/13/2023 15:26:21 02/16/20 24 02/16/2024 cerum en remov al (PROC ) done Elizabeth Not Available In-Office Order Internal Use Only DO Not Attach Compendium DO Not Attach Compendium, Do Not Delete/merge, [id number] 02/16/2024 16:15:36 12/28/19 24 12/28/2023 CT, chest , w/o contr ast No observ ation record ed. [address] (Medical Records) [address] [place] [address], [id number], 12/29/2023 09:28:28 12/28/19 24 12/28/2023 CT, head, w/o contr ast No observ ation record ed. [address] (Medical Records) [address] [place] [address], [id number], 12/29/2023 09:28:38 04/18/20 24 04/18/2024 imagi ng/di agnos tic resul t No observ ation record ed. [facility] [address], [place], [address], 04/18/2024 16:20:33 04/18/20 24 04/18/2024 MAMMO , scree yeimy, digit al, bilat eral PROCED URE: MM Digita l Mammo Screen ing INDICA TION: Screen ing for breast cancer . No known palpab le abnorm alitie s. COMPAR MELANIE: BBWC dating back to 017. TECHNI QUE: Full-f ield digita l CC and MLO 3D tomosy nthesi s images of both breast s were acquir ed. Comput er-aid ed detect ion (CAD) was utiliz ed in the interp retati on of this study. DENSIT Y: The breast tissue is almost entire ly fatty. FINDIN GS: No suspic ious masses , suspic ious microc alcifi cation s, or areas of asher ectura l distor tion are seen in either breast to sugges t malign lexi. Stable benign -appea ring focal asymme try in the subare olar right breast . IMPRES MAYCO: No mammog raphic eviden ce of malign lexi. RECOMM ENDATI ON: Annual mammog raphic screen ing BI-RAD S: 2 (Benig n) Lay letter mailed to oscar chamorro WSN: [id number] Orderi ng Physic silver: Hector Vaughn Dictat ed By: Pili Perales MD, I Dictat ed Date/T waldo: 9:11 am Review ed By: Pili Perales MD, I Signed By: Pili Perales MD, I Signed Date/T waldo: 9:11 am Transc ribed By: CSB Transc riptio n Date/T waldo: 9:08 am Birads : Oscar chamorro Class: Outpat ient [facility] (Outpt Imaging) [address] [place], [address], 04/18/2024 16:20:33 Result Notes None recorded. Problems Name Problem SNOMED Code Status Onset Date Resolution Date Notes Provider Name and Address Organization Details Recorded Time Acute sinusiti s 80470341 Completed 200801/02/2014 RECORDED 08/09/19 09 7:50AM BY KATIE PEREZ ON/[place] bond [facility] 6 09:51:09 Anxiety state 569195763 Completed 01/03/2019 Kiya Vaughn PA-C [address] [facility] [facility] [address], [place], [address] , [facility] 9 11:20:45 Patient status finding [id number] Completed 201201/02/2014 RECORDED 12/07/19 13 9:13AM BY NAREN BRANDT MA, KATIE ON/[place] bond [facility] 6 09:51:09 Screenin g for malignan t neoplasm of breast Completed 201101/02/2014 IMPRESSI ON: TRIED CALLING PATIENT. NUMBER LISTED IS NOT A WORKING NUMBER.; RECORDED 05/24/20 12 1:28PM BY NAREN BRANDT MA, ANNOTATI ON/ADDEN DUM Gabi bond, [facility] 7 14:37:07 Screenin g for malignan t neoplasm of breast Completed 11/19/2016 Gabi bond, [facility] 7 14:37:07 Screenin g for malignan t neoplasm of cervix Completed 201101/02/2014 RECORDED 05/24/20 12 1:29PM BY NAREN BRANDT MA, KATIE ON/ADDEN DUM Richar bond, [facility] 6 09:51:09 Conjunct ivitis 0217257 Completed 201201/02/2014 RECORDED 12/07/19 13 9:13AM BY NAREN BRANDT MA, ANNOTADEEL ON/ADDEN DUM Richar capellan null, [facility] 6 09:51:09 Dysmenor sade [id number] Completed 201101/02/2014 RECORDED 05/24/20 12 1:29PM BY NAREN BRANDT MA, KATIE ON/ADDEN DUM Richar capellan null, [facility] 6 09:51:09 Essentia l hyperten mayco 64628351 Active Richar Calderon MA null, [facility] 2 15:00:46 Influenz a vaccine needed [id number] 06 Completed 201001/02/2014 RECORDED 03/20/20 11 1:16PM BY ALINE DEL CASTILLO MA, OFFICE VISIT Richar bond, [facility] 6 09:51:09 Adult health examinat ion Completed 201201/02/2014 RECORDED 12/07/19 13 9:13AM BY NAREN BRANDT MA, MIKEATI ON/ADDEN DUM Richar Tolbert ro null, [facility] 6 09:51:09 Hyperlip idemia 66995534 Active EVELYN Hansen, [facility] 2 15:00:46 Essentia l hyperten mayco 41596937 Completed 200901/02/2014 RECORDED 02/22/20 10 9:38AM BY KATIE NYE ON/ADDEN DUM Richar Tolbert ro null, [facility] 6 09:51:09 Major depressi on single episode, in partial remissio n 89615927 Active EVELYN Hansen, [facility] 2 15:00:46 Administ ration of bacteria l and viral vaccine Completed 200801/02/2014 RECORDED 08/09/19 09 8:40AM BY RICHAR SHEPHERD MD, OFFICE VISIT Richar bond, [facility] 6 09:51:09 Pain of joint of wrist 715764241 Completed 201201/02/2014 RECORDED 12/07/19 13 9:13AM BY NAREN BRANDT MA, KATIE ON/ADDEN DUM Richar AlemanAlesskoffi ro null, [facility] 6 09:51:09 Palpitat ions 43674804 Completed 201201/02/2014 RECORDED 01/07/20 13 9:25AM BY NAREN BRANDT MA, KATIE ON/ADDEN DUM Richar AlemanAlealex ro null, [facility] 6 09:51:09 Screenin g for malignan t neoplasm of colon Completed 201101/02/2014 RECORDED 05/24/20 12 1:29PM BY NAREN BRANDT MA, ANNOTATI ON/ADDEN DUM Richar AlemanAlessand ro null, [facility] 6 09:51:09 Acute sinusiti s 61371670 Completed 200801/22/2014 RECORDED 08/09/19 09 7:50AM BY KATIE PEREZ ON/ADDEN DUM Richar capellan null, [facility] 6 09:51:09 Patient status finding [id number] Completed 201201/22/2014 RECORDED 12/07/19 13 9:13AM BY NAREN BRANDT MA, ANNOTATI ON/ADDEN DUM Richar capellan null, [facility] 6 09:51:09 Screenin g for malignan t neoplasm of breast Completed 201101/22/2014 IMPRESSI ON: TRIED CALLING PATIENT. NUMBER LISTED IS NOT A WORKING NUMBER.; RECORDED 05/24/20 12 1:28PM BY NAREN BRANDT MA, ANNOTATI ON/ADDEN DUM Gabi Guillermo MA null, [facility] 7 14:37:07 Screenin g for malignan t neoplasm of cervix Completed 201101/22/2014 RECORDED 05/24/20 12 1:29PM BY NAREN BRANDT MA, MIKEATI ON/ADDEN DUM Richar capellan null, [facility] 6 09:51:09 Conjunct ivitis [id number] Completed 201201/22/2014 RECORDED 12/07/19 13 9:13AM BY NAREN BRANDT MA, KATIE ON/ADDEN DUM Richar capellan null, [facility] 6 09:51:09 Dysmenor sade [id number] Completed 201101/22/2014 RECORDED 05/24/20 12 1:29PM BY NAREN BRANDT MA, ANNOTATI ON/ADDALEX capellan null, [facility] 6 09:51:09 Influenz a vaccine needed [id number] 06 Completed 201001/22/2014 RECORDED 03/20/20 11 1:16PM BY ALINE DEL CASTILLO MA, OFFICE VISIT Richar capellan null, [facility] 6 09:51:09 Adult health examinat ion Completed 201201/22/2014 RECORDED 12/07/19 13 9:13AM BY NAREN BRANDT MA, ANNOTATI ON/ADDEN DUM Richar Tolbert ro null, [facility] 6 09:51:09 Administ ration of bacteria l and viral vaccine Completed 200801/22/2014 RECORDED 08/09/19 09 8:40AM BY RICHAR SHEPHERD MD, OFFICE VISIT Richar Tolbert ro null, [facility] 6 09:51:09 Pain of joint of wrist 353729302 Completed 201201/22/2014 RECORDED 12/07/19 13 9:13AM BY NAREN BRANDT MA, MIKEATI ON/ADDEN DUM Richar Tolbert ro null, [facility] 6 09:51:09 Palpitat ions 19528280 Completed 201201/22/2014 RECORDED 01/07/20 13 9:25AM BY NAREN BRANDT MA, ANNOTATI ON/ADDEN DUM Richar Tolbert ro null, [facility] 6 09:51:09 Screenin g for malignan t neoplasm of colon Completed 201101/22/2014 RECORDED 05/24/20 12 1:29PM BY NAREN BRANDT MA, ANNOTATI ON/ADDEN DUM Richar Tolbert ro null, [facility] 6 09:51:09 Blood in urine 40351299 Active 2018 Not Available [facility] 01:19:24 Hyponatr emia 47168555 Active 2020 Not Available [facility] 01:19:24 Alcohol dependen ce 44409934 Active 2020 Not Available [facility] 01:19:24 Liver enzymes level above referenc e range 196160323 Active 2020 Richar Calderon MA null, [facility] 2 15:00:46 Lumbosac ral radiculi tis 87728794 Active 2020 Richar Calderon MA null, [facility] 2 15:00:46 Family history of cancer of colon 919390782 Active 2020 Richar Calderon MA null, [facility] 2 15:00:46 Gastroes ophageal reflux disease 633108242 Active 2020 Not Available [facility] 1 01:19:24 History of polyp of colon 896829030 Active 2022 Chacorta Vaughn PA-C [address], [place], [address] , [facility] 3 13:17:50 Leukopen ia 83182326 Active 2022 Chacorta Vaughn PA-C [address] [facility] [address], [place], [address] , [facility] 3 13:34:47 Insomnia 653966171 Active 2023 Chacorta Vaughn PA-C [address] [facility] [address], [place], [address] , [facility] 4 17:37:09 Major depressi ve disorder 546034630 Active 2023 Chacorta Vaughn PA-C [address] [facility] [address], [place], [address] , [facility] 4 10:21:19 Problem Notes None recorded. Procedures Surgical History Date Name Laterality Status Provider Name and Address Organization Details Recorded Time 4 Most Recent Mammogram completed Yodit Arellano [facility] 04/18/2024 10:00:30 3 Mammogram both breasts completed Crystal Estrada [facility] 03/08/2023 15:12:10 1 Date of Last Colonoscopy completed Crystal Estrada [facility] 10/23/2021 14:02:21 1 Colonoscopy completed Chacorta Vaughn PA-C [address] [address], [place], [address], [facility] 12/27/2021 12:48:34 7 Mammogram screening completed Ilana Marinajeramy [facility] 10/22/2016 11:13:55 7 Date of Last Pap Smear completed Sol multani [facility] 07/09/2020 14:52:22 0 Colonoscopy completed Sol multani [facility] 05/10/2018 09:00:59 Imaging Results None recorded. Procedure Notes None recorded. Medical Equipment None Reported. Allergies Allergen ID Allergen Name Allergen Category Reaction Reaction Severity Criticality Documentation Date Start Date Code Code System Note Provider Name and Address Organization Details Recorded Time 72141 Product containin g penicilli n (product) medicatio n Not available Not available Not available 12/26/2013 [id number] [id number] SNOMED as an infan t Sol graves [place] [facility] 8 09:05:56 Medications Name Sig Start Date Stop Date Status Note LastModified by Organization Details LastModified Time venlafaxi ne hcl er 75 mg cp24 active Not Available Not Available Not Available lisinopri l 40 mg tabs 01/05 completed Not Available Not Available Not Available dicyclomi ne hcl 10 mg caps 01/05 completed Not Available Not Available Not Available metoprolo l succinate er 50 mg tb24 01/05 completed Not Available Not Available Not Available venlafaxi ne hcl er 150 mg cp24 01/05 completed Not Available Not Available Not Available venlafaxi ne ER 37.5 mg capsule,e xtended release 24 hr TAKE 2 CAPSULES BY MOUTH EVERY DAY DIRECTED 05/29 completed Not Available Not Available Not Available venlafaxi ne ER 75 mg capsule,e xtended release 24 hr TAKE 1 CAPSULE BY MOUTH EVERY DAY DIRECTED 2024 active Not Available Not Available Not Avai lable clindamyc in HCl 300 mg capsule Take 1 capsule every 6 hours by oral route for 7 days. 11/19 completed Not Available Not Available Not Available metoprolo l succinate ER 50 mg tablet,ex tended release 24 hr TAKE 1 TABLET BY MOUTH EVERY DAY 11/02 completed Not Available Not Available Not Available lisinopri l 20 mg tablet QD 06/02 completed RECORDED 07/06/19 13 8:39AM BY NAREN BRANDT MA, MEDICATI ON AUTO-NIGEL CTIVATIO N; Not Available Not Available Not Available metoprolo l succinate ER 100 mg tablet,ex tended release 24 hr TAKE 1 TABLET BY MOUTH EVERY DAY DIRECTED active Not Available Not Available No t Available venlafaxi ne ER 150 mg capsule,e xtended release 24 hr TAKE 1 CAPSULE BY MOUTH EVERY DAY DIRECTED 02/24 completed Not Available Not Available Not Available amlodipin e 2.5 mg tablet TAKE 1 TABLET BY MOUTH EVERYDAY AT BEDTIME 04/09 completed dose increase Not Available Not Available Not Available ciproflox acin 250 mg tablet Take 1 tablet every 12 hours by oral route. 01/02 completed Not Available Not Available Not Available amlodipin e 5 mg tablet Take 1 tablet every day by oral route for 90 days. 01/02 completed Not Available Not Available Not Available sulfameth oxazole 800 mg-trimet hoprim 160 mg tablet TWO TIMES DAILY 09/26 completed RECORDED 02/09/20 08 12:55PM BY CINDI VALENZUELA, MEDICATI ON AUTO-NIGEL CTIVATIO N; Not Available Not Available Not Available alprazola m 0.5 mg tablet THREE TIMES DAILY, NEEDED 03/22 completed RECORDED 03/29/20 12 9:25AM BY RICHAR SHEPHERD MD, MEDICATI ON AUTO-NIGEL CTIVATIO N; Not Available Not Available Not Available lorazepam 0.5 mg tablet TAKE 1 TABLET 3 TIMES A DAY BY ORAL ROUTE NEEDED FOR 15 DAYS. active Not Available Not Available No t Available IBU 600 mg tablet Take 1 tablet every 6 hours by oral route as needed. active Not Available Not Available No t Available polymyxin B sulfate 10,000 unit-trim ethoprim 1 mg/mL eye drops QID 11/29 completed RECORDED 11/30/19 13 4:18PM BY LISA RIZVI RN-BC, MEDICATI ON AUTO-NIGEL CTIVATIO N; Not Available Not Available Not Available omeprazol e 20 mg capsule,d elayed release TAKE 1 CAPSULE BY MOUTH DAILY 2024 active Not Available Not Available Not Avai lable hydrochlo rothiazid e 25 mg tablet TAKE 1 TABLET BY MOUTH EVERY DAY FOR 30 DAYS active Not Available Not Available No t Available gabapenti n 100 mg capsule TAKE 2 CAPSULES NEEDED BY ORAL ROUTE AT BEDTIME FOR 30 DAYS. 01/04 completed Not Available Not Available Not Available metoprolo l succinate ER 25 mg tablet,ex tended release 24 hr One daily active Not Available Not Available No t Available methylpre dnisolone 4 mg tablets in a dose pack Take 1 package by oral route. 11/19 completed Not Available Not Available Not Available lisinopri l 40 mg tablet TAKE 1 TABLET BY MOUTH EVERY DAY active Not Available Not Available No t Available oxycodone 5 mg tablet TAKE 1 TABLET BY MOUTH EVERY 6 HOURS NEEDED FOR PAIN FOR 5 DAYS 06/18 completed Not Available Not Available Not Available valsartan 160 mg tablet Take 1 tablet every day by oral route for 30 days. active Not Available Not Available No t Available nitrofura ntoin monohydra te/macroc rystals 100 mg capsule Take 1 capsule twice a day by oral route for 7 days. 06/29 completed Not Available Not Available Not Available Levora 0.15/30 (28) QD 03/20 completed RECORDED 03/20/20 11 1:13PM BY ALINE DEL CASTILLO MA, OFFICE VISIT; Not Available Not Available Not Available sodium chloride 1,000 mg soluble tablet Take 1 tablet twice a day by miscell. route. active Not Available Not Available No t Available Fluarix Quad 7240-2564 (PF) 60 mcg (15 mcg x 4)/0.5 mL IM syringe 11/02 completed Not Available Not Available Not Available Afluria Quad (PF) 60 mcg (15 mcg x 4)/0.5 mL IM syringe 05/10 completed Not Available Not Available Not Available magnesium 400 mg (as magnesium oxide) tablet Take 1 tablet twice a day by oral route. active Not Available Not Available No t Available Flucelvax Quad 60 mcg (15 mcg x 4)/0.5 mL intramusc ular susp 06/29 completed Not Available Not Available Not Available Afluria Qd (36 mos up)(PF)60 mcg (15 mcg x4)/0.5 mL IM syringe PHARMACY ADMINIST ERED 07/09 completed Not Available Not Available Not Available Vitals Date Recorded Body height Body mass index (BMI) Body weight Oxygen saturation Oxygen saturation in Arterial blood by Pulse oximetry Heart rate Body temperature Systolic blood pressure Diastolic blood pressure Provider Name and Address Organization Details Last Updated DateTime 4 165.1 cm 25 kg/m2 64651.8 6 g 97 % 97 % 84 /min 98.3 [degF] 120 mm[Hg] 82 mm[Hg] Sheron Palma MA [facility] 4 15:38:43 Date Recorded Body height Body mass index (BMI) Body weight Heart rate Oxygen saturation Oxygen saturation in Arterial blood by Pulse oximetry Body temperature Systolic blood pressure Diastolic blood pressure Provider Name and Address Organization Details Last Updated DateTime 4 165.1 cm 26.5 kg/m2 28439.1 9 g 95 /min 95 % 95 % 97.1 [degF] 139 mm[Hg] 93 mm[Hg] [facility] 4 08:49:53 Date Recorded Systolic blood pressure Diastolic blood pressure Provider Name and Address Organization Details Last Updated DateTime 02/16/2024 132 mm[Hg] 86 mm[Hg] Chacorta Vaughn PA-C [address], [place], [address], [facility] 02/16/2024 16:18:52 Date Recorded Body height Body mass index (BMI) Body weight Heart rate Oxygen saturation Oxygen saturation in Arterial blood by Pulse oximetry Body temperature Systolic blood pressure Diastolic blood pressure Provider Name and Address Organization Details Last Updated DateTime 4 165.1 cm 27 kg/m2 24458.9 6 g 87 /min 98 % 98 % 97.2 [degF] 167 mm[Hg] 107 mm[Hg] Katarina Brown EVELYN [facility] 15:41:32 Date Recorded Body height Provider Name an d Address Organization Details Last Updated DateTime 04/18/2024 165.1 cm Sheron PalmaEVELYN [facility] 04/18/2024 15:49:57 Social History Question Answer Notes LastModified by Organizat ion Details LastModified Time Tobacco Smoking Status Never Smoker Verona Mendieta varun [facility] 09/17/2014 11:31:00 Do You Have An Advance Directive? Yes Information not available 10/22/2021 Is Blood Transfusion Acceptable In An Emergency? Yes Information not available 05/30/2015 What Is Your Level Of Caffeine Consumption? None Information not available 02/16/2024 How Much Tobacco Do You Chew? None Information not available 05/30/2015 What Type Of Diet Are You Following? REGULAR Information not available 05/10/2018 Which Illicit Or Recreational Drugs Have You Used? Marijuana Information not available 10/22/2021 Are There Any Guns Present In Your Home? Yes Safely Locked Information not available 10/22/2021 Live Alone Or With Others? With Others Boyfriend (Arjun) And 2 Dogs Information not available 02/16/2024 Do You Take Precautions To Prevent Distracted Driving? Yes Information not available 05/30/2015 How Often Do You Need To Have Someone Help You When You Read Instructions, Pamphlets, Or Other Written Material From Your Doctor Or Pharmacy? Sometimes Information not available 10/22/2021 Have You Served In The ? No [email or web address] Information not available 05/03/2017 Have You Or Anyone In Your Household Had Any Of The Following Symptoms In The Last 14 Days: Sore Throat, Cough, Chills, Body Aches For Unknown Reasons, Shortness Of Breath For Unknown Reasons, Loss Of Smell, Loss Of Taste, Fever At Or Greater Than 100 Degrees Fahrenheit? No Information not available 07/09/2020 Are You Or Anyone In Your Household A Health Care Provider Or Emergency Responder? No Information not available 07/09/2020 To The Best Of Your Knowledge Have You Been In Close Proximity To Any Individual Who Tested Positive For COVID-19? No Information not available 07/09/2020 Have You Recently Traveled To A COVID-19 High Risk Area Or Gathering In The Last 10 Days? No Information not available 07/09/2020 What Was The Date Of Your Most Recent Tobacco Screening? 02/16/2024 Information not available 02/16/2024 How Many Children Do You Have? 1 Troy Information not available 05/10/2018 Do You Use Protection During Sex? No Information not available 05/30/2015 Do You Use Your Seat Belt Or Car Seat Routinely? Yes Information not available 10/22/2021 Seat Belts Used Routinely Yes Information not available 10/22/2021 Are You Sexually Active? Yes Information not available 05/30/2015 Smoke Alarm In Home Yes Information not available 10/22/2021 Do You Have Smoke And Carbon Monoxide Detectors In Your Home? Yes Information not available 10/22/2021 At What Age Did You Start Smoking Tobacco? 0 Information not available 05/10/2018 Are You Passively Exposed To Smoke? No Information not available 05/30/2015 How Much Tobacco Do You Smoke? No Information not available 05/30/2015 General Stress Level High Information not available 10/22/2021 Do You Use Sunscreen Routinely? No Information not available 10/22/2021 How Many Years Have You Smoked Tobacco? 0 Information not available 05/10/2018 Sex: Unknown Functional Status Question Answer Note LastModified by Organizat ion Details LastModified Time Do you use any illicit or recreational drugs? Yes Information not available 02/16/2024 What is your level of alcohol consumption? Occasional Very Occ. Information not available 02/16/2024 Do you or have you ever used smokeless tobacco? Never used smokeless tobacco Information not available 10/17/2019 Are you currently employed? Yes [email or web address] Information not available 09/17/2014 Are you able to walk? YESWOREST Information not available 10/22/2021 Are you able to care for yourself? 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 Never used electronic cigarettes Information not available 10/22/2021 What is your exercise level? None [email or web address] Information not available 05/10/2018 Mental Status None recorded. Family History Relationship Description Onset Age of this Age Resolved Age Notes LastModified by Organization Details LastModified Time Father Coronary arterioscler osis 53 77 [email or web address] Not available 11/2014 12:16:40 Father Blood coagulation disorder 50 79 [email or web address] Not available 01/05 09:16:19 Father Dementia 55 79 [email or web address] Not availab le 01/06/2016 09:16:19 Father Heart disease 50 79 [email or web address] Not available 01/05 09:16:19 Mother Malignant tumor of colon 80 [email or web address] Not available 12:46:42 Sister Multiple sclerosis 25 56/Gai l [email or web address] Not available 01/06/2016 09:16:19 Brother Myocardial infarction 57 [place] age 57/CAB G [email or web address] Not available 10/22/2021 09:48:05 Medical History Condition Response Other N Gout N Blood Diseases N Kidney Stones N Hyperthyroidism N Breast Cancer N Lung Disease N COPD N Depression Y Hypothyroidism N Defects or Inherited Disease N Anesthesia Complications N Headaches/Migraines N Varicose Veins N Anxiety Disorder Y Obesity N Vision or Eye Problems N Arthritis N Head Injury/Concussion N Polyps N Infertility N Congenital Anomalies N Acid Reflux (GERD) N Cancer N Stroke N ADHD N Endometriosis N High Cholesterol N Liver Disease N Fibromyalgia N Kidney Disease N Heart Problems N Ear or Hearing Problems N Hospitalizations N Thyroid Problems N GI Problems N Acne N Skin Problems N Eating Disorder N Anemia N Constipation N Bladder Problems N Mental Illness N Ovarian Cancer N Diabetes N Blood Transfusions N Seizures/Epilepsy N Tuberculosis N AIDS/HIV N Congestive Heart Failure (CHF) N Eczema N Diverticulitis N Abuse/Domestic Violence N Asthma N Allergies N Reflux/GERD N Hepatitis N Pulmonary Embolism N Hypertension Y Osteoporosis N Chicken Pox N Autism Spectrum Disorder (ASD) N Gynecological History Statement/Question Response Abnormal Pap Y Flow Heavy On BCP's at Conception? N STIs/STDs N HPV Vaccine N Duration of Flow (days) 4 Current Control Method None Most Recent Mammogram 04/18/2024 Date of Last Colonoscopy 11/25/2020 Frequency of Cycle (Q days) 14 Sexually Active? Y Menses Monthly Yes Date of Last Pap Smear 10/21/2016 Sexual Problems? N LMP Approximate Desired Control Method N/A Obstetrics History GPAL:G 0 P 0 0 0 0 Immunizations Vaccine Type Date Status Note Provider Nam e and Address Organization Details Recorded Time Td (adult), 2 Lf tetanus toxoid, preservative free, adsorbed 9 completed Karen bond [facility] 04/03/2021 15:00:34 Tdap 9 completed Karen bond [facility] 04/03/2021 15:00:34 Influenza, split virus, trivalent, preservative 1 completed EVELYN Hansen [facility] 05/12/2022 15:00:52 Influenza, split virus, trivalent, preservative 2 completed EVELYN Hansen [facility] 05/12/2022 15:00:51 COVID-19, mRNA, LNP-S, PF, 100 mcg/0.5mL dose or 50 mcg/0.25mL dose 1 completed Karen bond [facility] 04/03/2021 15:00:34 COVID-19, mRNA, LNP-S, PF, 30 mcg/0.3 mL dose 1 completed EVELYN Hansen, [facility] 05/12/2022 15:00:52 Influenza, split virus, quadrivalent, PF 1 completed EVELYN Hansen, [facility] 05/12/2022 15:00:52 Influenza, split virus, quadrivalent, PF 0 completed EVELYN Hansen, [facility] 05/12/2022 15:00:51 Influenza, split virus, quadrivalent, preservative 6 completed EVELYN Scott, [facility] 10/22/2021 10:02:22 Influenza, split virus, quadrivalent, PF 7 completed EVELYN Hansen, [facility] 05/12/2022 15:00:51 Influenza, MDCK, quadrivalent, preservative 9 completed EVELYN Hansen, [facility] 05/12/2022 15:00:52 COVID-19, mRNA, LNP-S, PF, 30 mcg/0.3 mL dose 1 completed EVELYN Hansen, [facility] 05/12/2022 15:00:52 COVID-19, mRNA, LNP-S, PF, 30 mcg/0.3 mL dose 1 completed EVELYN Hansen, [facility] 05/12/2022 15:00:52 Influenza, split virus, quadrivalent, preservative 8 completed EVELYN Hansen, [facility] 05/12/2022 15:00:52 Tdap 1 completed EVELYN Ennis, [facility] 06/18/2022 15:09:15 COVID-19, mRNA, LNP-S, bivalent, PF, 30 mcg/0.3 mL dose 2 completed EVELYN Ennis, [facility] 06/18/2022 15:09:15 Influenza, MDCK, quadrivalent, PF 2 completed EVELYN Ennis, [facility] 06/18/2022 15:09:15 Influenza, split virus, quadrivalent, PF 3 completed EVELYN Bundy, [facility] 10/13/2023 15:21:48 Influenza, split virus, trivalent, PF 4 completed EVELYN Bundy, [facility] 04/18/2024 15:48:55 Past Encounters Encounter ID Performer Location Encounter Start Date Encounter Closed Date Diagnosis/Indication Diagnosis SNOMED-CT Code Diagnosis ICD10 Code Diagnosis Note [id number] [facility] [address] [facility] [address] [place] [address] 08/04/2007 00:00:00 [id number] auto[facility] erce [address] [facility] [place] [address] 08/04/2007 00:00:00 [id number] [employer] erce [address] [facility] [place] [address] 09/13/2007 00:00:00 [id number] auto[facility] erce [address] [facility] [place] [address] 08/09/2008 00:00:00 [id number] autoEComm erce [address] [facility] [place] [address] 08/09/2008 00:00:00 [id number] auto[facility] erce [address] [facility] [place] [address] 08/09/2008 00:00:00 [id number] auto[facility] erce [address] [facility] [place] [address] 02/28/2010 00:00:00 [id number] auto[facility]Comm erce [address] [facility] [place] [address] 02/28/2010 00:00:00 [id number] auto[facility] erce [address] [facility] [place] [address] 03/20/2011 00:00:00 [id number] [address] erce [address] [place] [address] 03/20/2011 00:00:00 [id number] autoEComm erce [address] [facility] [place] [address] 05/24/2012 00:00:00 [id number] autoEComm erce [address] [facility] [place] [address] 05/24/2012 00:00:00 [id number] auto[facility]Comm erce [address] [facility] [place] [address] 12/06/2012 00:00:00 [id number] autoEComm erce [address] [facility] [place] [address] 01/06/2013 00:00:00 [id number] autoEComm erce [address] [facility] [place] [address] 01/06/2013 00:00:00 [id number] autoEComm erce [address] [facility] [place] [address] 01/06/2013 00:00:00 [id number] autoEComm erce [address] [facility] [place] [address] 08/15/2013 00:00:00 [id number] autoEComm erce [address] [facility] [place] [address] 08/15/2013 00:00:00 [id number] autoEComm erce [address] [facility] [place] [address] 08/15/2013 00:00:00 [id number] Richar capellan MD Main Office [address] [facility] [address] [place] [address] 09/17/2014 11:12:25 09/17/2014 12:07:34 Essential hypertension 45331160 Anxiety state 762523045 [id number] Richar capellan MD Main Office [address] [facility] [address] [place] [address] 05/30/2015 09:28:49 05/30/2015 10:24:49 Adult health examination 422683353 Z00.00 Essential hypertension 16401875 I10 Major depr ession single episode, in partial remission 33265242 F32.[address] and pt on only 150 mg of venlafaxin e Hyperlipidemia 66326490 E78.5 Anxiety state 714562201 F41.1 [id number] Richar capellan MD Main Office [address] [facility] [address] [place] [address] 01/06/2016 09:05:48 01/06/2016 10:10:25 Adult health examination 410054750 Z00.00 Essential hypertension 42124356 I10 Major depr ession single episode, in partial remission 82285648 F32.[address] and pt on only 150 mg of venlafaxin e [id number] Kiya Vaughn PA-C Main Office [address] [address] 06/30/2016 13:29:35 06/30/2016 14:50:15 Acute pharyngitis 783453698 J02.9 Peritonsillar abscess 15 398158 J36 [id number] Richar capellan MD Main Office [address] [address] 11/19/2016 14:31:31 11/19/2016 15:29:12 Essential hypertension 15390530 I10 [id number] Richar capellan MD Main Office [address] [address] 05/03/2017 08:44:33 05/03/2017 09:36:04 Adult health examination 304504442 Z00.00 Screening for malignant neoplasm of colon 786772398 Z12.11 Major depr ession single episode, in partial remission 26406829 F32.[address] and pt on only 150 mg of venlafaxin e Hyperlipidemia 76695456 E78.5 Essential hypertension 87889570 I10 [id number] Richar capellan MD Main Office [address] [place] [address] 11/02/2017 08:53:26 11/02/2017 09:37:00 Essential hypertension 13834313 I10 [id number] SAURABH Ardon Main Office [address] [address] [place] [address] 05/10/2018 08:51:44 05/10/2018 09:44:12 Adult health examination 918726411 Z00.00 Due for colo and mammogram, had pap 2016. Essential hypertension 35725082 I10 BP 140s which is good for her. EKG borderline , changed form 2012 but no significan t abnormalit y, will repeat at next PE. she denies chets pain, palpitatio ns, decreased exercise tolerance. Screening for malignant neoplasm of colon 183644029 Z12.11 Screening for malignant neoplasm of cervix 807767660 Z12.4 Hyperlipidemia 27101435 E78.5 Major depr ession single episode, in partial remission 31909969 F32.4 Anxiety state 840138702 F41.1 [id number] Daren Chaudhry MD Main Office [address] [address] [place] [address] 01/03/2019 10:15:26 01/03/2019 12:15:21 Major depression single episode, in partial remission 05194402 F32.4 increased personal stress and increased ETOH intake. Pt. decided to quit alcohol on her own. Recommend to start counseling and will take Lorazepam at small dose for the next couple of days to avoid withdrawal . F/u 4 wks. Generalize d anxiety disorder 24209094 F41.1 Increase Effexor to 225 mg daily and recommend to see psychologi st. Alcohol dependence 50745 003 F10.20 recommend counseling and AA. [id number] Iván Lomax MD Main Office [address] [address] [place] [address] 02/24/2019 09:19:20 02/24/2019 10:04:59 Major depression single episode, in partial remission 33980189 F32.4 feeling better. PHQ 9 score 09/07, SHAVONNE score 0/21. she is feeling much better, Essential hypertension 12644335 I10 BP well controlled today. taking meds as directed. [id number] Cezar Fritz MD Main Office [address] [address] [place] [address] 05/29/2019 15:28:14 05/29/2019 16:26:55 Microscopic hematuria 657675982 R31.21 Urine dip with blood only, due to no sx will not treat with antibiotic s until culture is back. Blood in urine 34347853 R31.9 Due to gross hematuria without sx would proceed with labs and ultrasound to rule out stones, bladder lesions. Push fluids, call if any pain or fever/chil ls develops. await UC and other testss. Consider urology evaluation . Avoid bladder irritants [id number] Iván Lomax MD Main Office [address] [address] [place] [address] 06/29/2019 08:49:20 06/29/2019 10:10:33 Essential hypertension 63259867 I10 BP well controlled today. taking meds as directed. Major depr ession single episode, in partial remission 70474622 F32.4 refills provided Anxiety state 464516068 F41.1 requests refill [id number] Iván Lomax MD Main Office [address] [address] [place] [address] 10/17/2019 08:31:16 10/17/2019 11:17:19 Abdominal pain 39963795 R10.9 Will check bloodwork, instructed to eat bland foods, 3 tomes daily with snacks in between. do not go long periods without eating. Start omeprazole 20mg daily first thing in am on and empty stomach with a full glass of water. call/ return for worsening or concerns. Gastroesop hageal reflux disease 007190385 K21.9 [id number] Cezar Fritz MD [facility] [address] [address] [place] [address] 07/09/2020 09:03:47 07/09/2020 16:20:29 Dysuria 41335278 R30.0 SYMPTOMS: burning with urination? no frequency? yes hematuria? no lower abdominal pain? no symptoms similar to previous UTI? yes POSSIBLE CONTRAINDI CATIONS TO TELEPHONE TREATMENT: > 65 years of age? no fevers? no recent UTI (within 1 month)? no new low back pain? no nausea or vomiting? no ? no history of interstiti al cystitis? no PROVIDER ACTION: Reviewed nursing notes? Recommende d action Antibiotic treatment Lumbosacra l radiculitis 57561457 M54.17 from her h/o sxs, sounds like she may have radicular etiology contributi ng to her urinary sxs (? stenosis/m ild neurogenic bladder) - check xray for further eval, and see above/belo w - check labs and urine to cast a wider net of investigat ion into the potential cause of her sxs (r/o other entities) Left flank pain 35732408 9 R10.9 doubt kidney stones c months of sxs, but will consider ct renal protocol if first round of testing is inconclusi ve - f/u next wk, sooner prn [id number] Cezar Fritz MD Main Office [address] [facility] [address] [place] [address] 07/15/2020 10:50:17 07/15/2020 13:07:39 Hyponatremia 59486059 E87.1 seen at er - ct a/p wnl x fibroid - pending f/u c renal *will fwd this note to renal* Cough 45139917 R05 will check cxr, oren in light of hyponatrem ia above Lumbosacra l radiculitis 84363809 M54.17 seen at er - ct a/p wnl x fibroid - 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 pain radiating to L flank (she will try a new ergonomic chair at work) - check xray for further eval, will get pmr eval (? they will get PT eval for ergonomic w/u), and consider gbn if sxs worsen Fatigue 56638663 R53.83 Major depr ession single episode, in partial remission 36730178 F32.4 stable lately, cont med as dir [id number] Cezar Fritz MD Main Office [address] [facility] [address] [place] [address] 09/18/2020 12:51:20 09/18/2020 15:12:20 Adult health examination 182117755 Z00.00 pending see sewing demonstrator for pap in 12/02 Hyponatremia 06550539 E8 7.1 likely d/t etoh - will get neph eval Viral ente ritis of intestine 92464307 A08.4 seen at er recently - sxs resolved - reviewed note/ct scan - see above and below Alcohol dependence 10432 003 F10.20 see above - cont slow progressiv e weaning - encouraged pt to cont, partner is a core winder machine operator - very helpful - see below Major depr ession single episode, in partial remission 91512530 F32.4 stable lately, cont med as dir, see above very rare use of benzo Liver enzy mes level above reference range 243571387 R74.01 ? alcoholic liver dz vs cirrhosis vs other - will begin w/u - see below - if sig w/u then consider gi eval (Dr. Barba) Screening for cardiovascular system disease 556134412 Z13.6 Lumbosacra l radiculitis 20785754 M54.17 better lately - pt declines physiatry eval - will cx Impaired f asting glycemia 843392999 R73.01 Family his tory of cancer of colon 465505156 Z80.0 Screening for malignant neoplasm of breast 733723685 Z12.39 Varicella vaccination 68 925127 Z23 Gastroesop hageal reflux disease 316804761 K21.9 encouraged pt to stay on ppi until seen by gi - ? may need egd Requires a tetanus booster 471914157 Z23 Impacted c erumen of bilateral ears 0984779277 893100 H61.23 [id number] Cezar Fritz MD Main Office [address] [address] 10/22/2021 09:47:18 10/22/2021 11:08:56 Adult health examination 183925648 Z00.00 as per pt had pap last yr Screening for malignant neoplasm of breast 122605573 Z12.39 Varicella vaccination 68 053460 Z23 Gastroesop hageal reflux disease 498905097 K21.9 better c less etoh and better diet - rec stop ppi and use prn ac spicy meal Liver enzy mes level above reference range 330623417 R74.01 cont f/u c gi - Dr. 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, minimal etoh intake - sig weaning Major depr ession single episode, in partial remission 82148025 F32.4 stable lately, cont med as dir, see above very rare use of benzo Hepatitis C screening 41 9592167 Z11.59 Essential hypertension 43439245 I10 bp persists elevated despite 3 meds - used to see neph - will refer back to them meanwhile, trial of low dose aml, and check microalbum in Family his tory of cancer of colon 502844278 Z80.0 as per pt nl colon 6.21 - next in 5 yrs - will attempt to track down Hyperlipidemia 37299013 E78.5 Hyponatremia 89995013 E8 7.1 likely d/t etoh - cont f/u c neph - check cmp above [id number] Cezar Fritz MD Main Office [address] [facility] [address] [place] [address] 06/18/2022 14:50:13 06/18/2022 16:08:34 Essential hypertension 62838101 I10 bp persists elevated despite 3 meds - used to see neph - will refer back to them meanwhile, trial of low dose aml, and check microalbum in 1.23 - bp elevated, unsure why off of amlodipine , rec resume this - will defer to renal about thiazide vs spironolac tone - enc pt to call renal for f/u visit *will cc: this note to renal --- should she be on spironolac tone?? * Hyponatremia 51688691 E8 7.1 see above Leukopenia 02103559 D72. 819 and anemia - pending see hem/onc next month - 2.02.03 [id number] Cezar Fritz MD Main Office [address] [facility] [address] [place] [address] 11/23/2022 09:04:38 11/23/2022 10:02:29 Essential hypertension 83905367 I10 bp persists elevated despite 3 meds - used to see neph - will refer back to them meanwhile, trial of low dose aml, and check microalbum in 1.23 - bp elevated, unsure why off of amlodipine , rec resume this - will defer to renal about thiazide vs spironolac tone - enc pt to call renal for f/u visit 6.23 - bp stable, cont meds as dir Hyponatremia 24878106 E8 7.1 labs pending, consider new renal eval if low again (no like last provider - Dr. Moore) Liver enzy mes level above reference range 836995946 R74.01 cont f/u c gi - Dr. Carson Serum ferr itin above reference range 630390618 R77.8 Anemia due to unknown mechanism 94653958 D64.9 cont f/u c hem/onc [id number] Cezar Fritz MD Main Office [address] [place] [address] 01/13/2023 12:49:02 01/13/2023 13:48:03 Adult health examination 137636435 Z00.00 as per pt had pap last yr Screening for malignant neoplasm of breast 282423116 Z12.39 Screening for malignant neoplasm of cervix 661983595 Z12.4 History of polyp of colon 125513648 Z86.010 next colon 6.26 Essential hypertension 84221255 I10 bp persists elevated despite 3 meds - used to see neph - will refer back to them meanwhile, trial of low dose aml, and check microalbum in 1.23 - bp elevated, unsure why off of amlodipine , rec resume this - will defer to renal about thiazide vs spironolac tone - enc pt to call renal for f/u visit 6.23 - bp stable, cont meds as dir 8.23 - pt has white coat htn - sig drop in bp at end of visit/deep breathing - cont meds as dir, cont monitor bp - call us if bp trends higher, still encourage pt to f/u c renal in near future, see below Hyperlipidemia 61999311 E78.5 Hyponatremia 82520354 E8 7.1 8.23 - see htn above, strongly encouraged her to recheck her labs (fasting) and f/u c renal Liver enzy mes level above reference range 455959964 R74.01 cont f/u c gi - Dr. Carson Leukopenia 54728447 D72. 819 and anemia - pending see hem/onc next month - 2.823 8.23 - pending f/u c hem/onc next month [id number] Yesica Alicea MD Main Office [address] [facility] [address] [place] [address] 04/09/2023 08:21:59 04/09/2023 09:09:10 Impacted cerumen of bilateral ears 6812209739 361444 H61.23 irrigated with hydrogen peroxide and warm water. Essential hypertension 84056706 I10 Elevated blood pressure at home and in office. Recommend to increase amlodipine to 5 mg daily and continue other bp medication s and low sodium diet. F/u in 6 weeks. [id number] Cezar Fritz MD Main Office [address] [facility] [address] [facility] [place] [address] 10/13/2023 14:58:41 10/13/2023 16:17:07 Essential hypertension 09028608 I10 bp persists elevated despite 3 meds - used to see neph - will refer back to them meanwhile, trial of low dose aml, and check microalbum in 1.23 - bp elevated, unsure why off of amlodipine , rec resume this - will defer to renal about thiazide vs spironolac tone - enc pt to call renal for f/u visit 6.23 - bp stable, cont meds as dir 8.23 - pt has white coat htn - sig drop in bp at end of visit/deep breathing - cont meds as dir, cont monitor bp - call us if bp trends higher, still encourage pt to f/u c renal in near future, see below 5.24 - bp stable, cont meds as dir Dysuria 93092048 R30.0 SYMPTOMS: burning with urination? no frequency? yes hematuria? no lower abdominal pain? no symptoms similar to previous UTI? no POSSIBLE CONTRAINDI CATIONS TO TELEPHONE TREATMENT: > 65 years of age? no fevers? no recent UTI (within 1 month)? no new low back pain? no nausea or vomiting? no ? no history of interstiti al cystitis? no PROVIDER ACTION: Reviewed nursing notes? Recommende d action Antibiotic treatment Major depr ession single episode, in partial remission 89937998 F32.4 stable lately, cont med as dir, see above very rare use of benzo 5.24 - doing better lately, self weaned off venlafaxin e - no see therapist Insomnia 432341719 G47.0 0 prn gbn Urinary tr act infectious disease 52836418 N39.0 recommend probiotics while on abx Hyponatremia 11666279 E8 7.1 8.23 - see htn above, strongly encouraged her to recheck her labs (fasting) and f/u c renal 5.24 - recheck c cc:renal, cont f/u c renal Hyperlipidemia 44464085 E78.5 Anemia due to unknown mechanism 77381546 D64.9 cont f/u c hem/onc Liver enzy mes level above reference range 894549962 R74.01 cont f/u c gi - Dr. Carson Serum ferr itin above reference range 375271511 R77.8 [id number] Cezar Fritz MD Main Office [address] [facility] [address] [place] [address] 12/30/2023 15:18:25 01/05/2024 15:17:29 [id number] Iván Lomax MD Main Office [address] [facility] [address] [place] [address] 01/05/2024 08:37:19 01/05/2024 09:01:45 Hyponatremia 26567928 E87.1 -was evaluated at [facility] for syncope; diaphoresi s, lightheade d and dizzy and was dx with hyponatrem ia-sodium was brought back to pt baseline of 130 while admitted-c urrently on sodium tablets-richards s not had an episode of syncope or presyncopa l symptoms since discharge- f/u with renal on 01/06-pt reports she spoke to the nephrologi and they will follow her lab work closely Transition of care 23498 85654 105 Z75.8 reviewed hospital documentat ion [id number] Cezar Fritz MD Main Office [address] [facility] [address] [place] [address] 02/16/2024 15:01:50 02/16/2024 16:43:37 Adult health examination 366342782 Z00.00 as per pt had nl pap last yr Essential hypertension 73058778 I10 bp persists elevated despite 3 meds - used to see neph - will refer back to them meanwhile, trial of low dose aml, and check microalbum in 1.23 - bp elevated, unsure why off of amlodipine , rec resume this - will defer to renal about thiazide vs spironolac tone - enc pt to call renal for f/u visit 6.23 - bp stable, cont meds as dir 8.23 - pt has white coat htn - sig drop in bp at end of visit/deep breathing - cont meds as dir, cont monitor bp - call us if bp trends higher, still encourage pt to f/u c renal in near future, see below 9.24 - bp stable, cont meds as dir History of polyp of colon 648813294 Z86.010 next colon 6.26 Hyponatremia 29744223 E8 7.1 8.23 - see htn above, strongly encouraged her to recheck her labs (fasting) and f/u c renal 5.24 - recheck c cc:renal, cont f/u c renal 9.24 - changed to arb, on mag & sodium tabs, cont f/u c renal 11.24 Major depr essive disorder 996161867 F32.0 has been off venlafaxin e x > 6 months - increased stress at work (new job) - she is looking for another positionpt declines therapist at this time - has been thru therapy in pastwill consider resuming venl if worse Alcohol dependence 36634 003 F10.20 see above - cont slow progressiv e weaning - encouraged pt to cont, partner is a core winder machine operator - very helpful - see below5.22 - 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 [address] [place] [address] 04/18/2024 15:21:03 04/19/2024 08:04:40 Major depression single episode, in partial remission 28134942 F32.4 stable lately, cont med as dir, see above very rare use of benzo 5.24 - doing better lately, self weaned off venlafaxin e - no see therapist 11.24 - much better lately, stable - cont venl 75mg qdno need for therapy Hypomagnesemia 709727624 E83.42 Hyponatremia 06509917 E8 7.1 8.23 - see htn above, strongly encouraged her to recheck her labs (fasting) and f/u c renal 5.24 - recheck c cc:renal, cont f/u c renal 9.24 - changed to arb, on mag & sodium tabs, cont f/u c renal 11.24 Health Concerns Section Related Observation LastModified by Organization Detai ls LastModified Time None Recorded Concern Status LastModified by Organization Details LastModified Time None Recorded Advance Directives Directive Y: Payers Encounter Date Sequence Insurance Name Policy Number Policy Larson Covered Member ID Larson Member ID Guarantor Name 10/13/2023 1 [employer] [place] [id number] Nelia Lechuga Manda [id number] Nelia Lechuga Manda 12/30/2023 1 [employer] [place] [id number] Nelia Lechuga Manda [id number] Nelia Lechuga Manda 01/05/2024 1 [employer] [place] [id number] Nelia Lechuga Manda [id number] Nelia Alexandrea Holman 02/16/2024 1 [employer] [place] [id number] Nelia Lechuga Manda [id number] 19 Nelia Lechuga Manda 04/18/2024 1 [employer] [place] [id number] Nelia Lechuga Manda [id number] Nelia Lechuga Manda Notes Date Note Type Note Provider Name and Address Organization Details Recorded Time 10/13/2023 text/html Pt complains of burning with urination for the past two days,has been taking OTC Pyrdium. Chacorta Vaughn PA-C [address] [address], [place], [address], [facility] 10/13/2023 17:43:02 12/30/2023 text/html Hospitalization Contact RecordReported bypatient.Follow UpHospital: [facility]; admit date: (Please enter in format 'MM/DD/YYYY') (12/27/2023); date of discharge: (Please enter in format 'MM/DD/YYYY') (12/30/2023); date of contact: (Please enter in format 'MM/DD/YYYY') (12/30/2023)Notes:[facility] care covered inpatient stay? noTOC with in 48 working hours? yes HCP on file? noMOLST on file? noDischarge Summary available? yesPt presented to [facility] ED for eval of lightheadedness, dizziness, and syncopal episodes x 2 while at work. 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 States she was in her normal state of health but while sitting at her desk she experienced sudden onset diaphoresis, lightheaded and dizzy. Co-workers witnessed 2 brief episodes of syncope while sitting at her desk. Currently not lightheaded or dizzy, but overall weak with a slight headache. Denies personal cardiac hx, but does note father had both a stroke and an IL, and brother has CAD with a CABG x3. 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 Did not seek medical treatment for that episode. Reports consuming alcoholic beverages after work daily. Occasionally smokes marijuana, denies nicotine use. 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 Reports has been on HCTZ for approx 1 year.Pt was admitted for syncope sec to hypotension, hypovolemia. Was given IVF and hypotension/hypovolemi a resolved. For Hyponatremia this was multifactorial due to underlying SIADH, poor solute intake, primary polydipsia, HCTZ. Was seen by Nephrology, started on sodium chloride tablets and urea. Sodium improved and appropriate rate and is 130 at discharge. We will continue on sodium tablets and f/u with Nephrology as outpt. For Hypomagnesemia was given replacement and will continue replacement as outpt. For hypertension was continued on metoprolol, lisinopril. For GERD was continued on Omeprazole. For alcohol dependence pt was educated on abstinence, noted to have leukopenia and anemia, did not have any issues with withdrawal. MEDS RECONCILED ELVIA SUTTON [address], [place], [address], [facility] [place] 01/05/2024 15:17:27 01/05/2024 text/html Hospitalization Contact Record For follow up, patient reports hospital: [facility], admit date:(12/27/2023), date of discharge: (12/30/2023), and date of contact: (12/30/2023). Medicare covered inpatient stay? no BRAD with in 48 working hours? yesHCP on file? noMOLST on file? noDischarge Summary available? yes Pt presented to [facility] for eval of lightheadedness, dizziness, and syncopal episodes x 2 while at work. 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 States she was in her normal state of health but while sitting at her desk she experienced sudden onset diaphoresis, lightheaded and dizzy. Co-workers witnessed 2 brief episodes of syncope while sitting at her desk. Currently not lightheaded or dizzy, but overall weak with a slight headache. Denies personal cardiac hx, but does note father had both a stroke and an IL, and brother has CAD with a CABG x3. 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 Did not seek medical treatment for that episode. Reports consuming alcoholic beverages after work daily. Occasionally smokes marijuana, denies nicotine use. No other illicit drug use. Pt states has chronic hyponatremia for some time, but unclear what her levels are or for how long they have been low. 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 Reports has been on HCTZ for approx 1 year. Pt was admitted for syncope sec to hypotension, hypovolemia. Was given IVF and hypotension/hypovolemi a resolved. For Hyponatremia this was multifactorial due to underlying SIADH, poor solute intake, primary polydipsia, HCTZ. Was seen by Nephrology, started on sodium chloride tablets and urea. Sodium improved and appropriate rate and is 130 at discharge. We will continue on sodium tablets and f/u with Nephrology as outpt. For Hypomagnesemia was given replacement and will continue replacement as outpt. For hypertension was continued on metoprolol, lisinopril. For GERD was continued on Omeprazole. For alcohol dependence pt was educated on abstinence, noted to have leukopenia and anemia, did not have any issues with withdrawal. MEDS RECONCILED Marisela bond [facility] [place] 01/11/2024 15:02:01 02/16/2024 text/html here for annual pe. Chacorta Vaughn PA-C [id number] [id number], [place], [address], [facility] [place] 02/17/2024 10:26:38 04/18/2024 text/html Anxiety/Depressi onRepo rted bypatient.Quality:symp toms improved Severity:denies suicidal ideations Context:major life stressors(much better lately) Associated Symptoms:denies homicidal ideations she is feeling bettertolerating venl 75mg qdgetting better adjusted at her new job - more comfortable Chacorta Vaughn PA-C [address], [place], [address], [facility] [place] 04/18/2024 16:41:50 OBGyn Episode No OBEpisode recorded.
== END 2024-11-17 13:38 | disposition home or self-care (01) ==
LOC: HO.HKA 13:27
PROVIDERS: PCP Physician Assistant Medical; Visit Provider Internal Medicine Hypertension Specialist
DX: E87.1 Hypo-osmolality and hyponatremia (principal); E83.42 Hypomagnesemia; D64.9 Anemia, unspecified
CPT/HCPCS: 99214

== ENCOUNTER → 2024-11-17 13:26 | Outpatient (BNVA) | payer OTHER, SELFPAY | PROVIDERS: PCP Physician Assistant Medical; Visit Provider Internal Medicine Hypertension Specialist ==